=== PATIENT | female | born 1955 | race Caucasian/White ===

== ENCOUNTER → 2016-06-12 | Outpatient (CLI) | payer BC ==
[2016-06-12 07:09] LABS: CH 31.8; CHCM 33.7; HCT 47.8 % (34.0-46.0); HDW 2.43; HGB 15.2 gm/dL (11.4-16.0); MCH 30.2 pg (25.0-35.0); MCHC 31.9 g/dL (31.0-37.0); MCV 94.8 fL (80.0-100.0); Mean Platelet Volume 7.3; RBC 5.04 m/uL (3.80-5.40); RDW 12.4 % (11.5-15.5); WBC 5.3 k/uL (3.8-10.6)
[2016-06-12 07:31] LABS: ALT 56 U/L (9-52); AST 30 U/L (14-36); Alkaline Phosphatase 75 U/L (38-126); Anion Gap 9 mmol/L; Blood Urea Nitrogen 15 mg/dL (7-17); Calcium 9.7 mg/dL (8.4-10.2); Carbon Dioxide 29 mmol/L (22-30); Chloride 105 mmol/L (98-107); Cholesterol 190 mg/dL (<200); Glucose 92 mg/dL (74-99); HDL Cholesterol 66 mg/dL (40-60); Non-African American GFR(MDRD) 59 (>60 ml/min/1.73 sqM); Potassium 5.1 mmol/L (3.5-5.1); Sodium 143 mmol/L (137-145); Total Bilirubin 0.9 mg/dL (0.2-1.3); Total Protein 7.2 g/dL (6.3-8.2); Triglycerides 72 mg/dL (<150)
== END | disposition home or self-care (01) ==
LOC: LABWHC1 06:34
PROVIDERS: ATTEND Internal Medicine
DX: E03.9 Hypothyroidism, unspecified (principal); E78.5 Hyperlipidemia, unspecified
CPT/HCPCS: 36415; 80053; 80061; 84443; 85027

== ENCOUNTER → 2016-09-17 | Outpatient (CLI) | payer BC ==
[2016-09-17 07:15] LABS: CH 32.1; CHCM 33.3; HCT 45.2 % (34.0-46.0); HGB 14.5 gm/dL (11.4-16.0); MCH 31.1 pg (25.0-35.0); MCHC 32.2 g/dL (31.0-37.0); MCV 96.7 fL (80.0-100.0); Mean Platelet Volume 7.9; RBC 4.67 m/uL (3.80-5.40); RDW 12.8 % (11.5-15.5); WBC 4.9 k/uL (3.8-10.6)
[2016-09-17 07:50] LABS: ALT 25 U/L (9-52); AST 20 U/L (14-36); Alkaline Phosphatase 69 U/L (38-126); Anion Gap 7 mmol/L; Blood Urea Nitrogen 15 mg/dL (7-17); Calcium 9.1 mg/dL (8.4-10.2); Carbon Dioxide 28 mmol/L (22-30); Chloride 109 mmol/L (98-107); Cholesterol 173 mg/dL (<200); Glucose 95 mg/dL (74-99); HDL Cholesterol 67 mg/dL (40-60); Non-African American GFR(MDRD) >60 (>60 ml/min/1.73 sqM); Potassium 4.4 mmol/L (3.5-5.1); Sodium 144 mmol/L (137-145); Total Bilirubin 0.8 mg/dL (0.2-1.3); Total Protein 6.5 g/dL (6.3-8.2); Triglycerides 65 mg/dL (<150)
== END | disposition home or self-care (01) ==
LOC: LABWHC1 06:39
PROVIDERS: ATTEND Internal Medicine
DX: E78.5 Hyperlipidemia, unspecified (principal); E03.9 Hypothyroidism, unspecified
CPT/HCPCS: 36415; 80053; 80061; 84443; 85027

== ENCOUNTER → 2017-02-19 | Outpatient (CLI) | payer BC ==
--- NOTE | 2017-02-22 10:22 | MM ---
Reason for exam: screening (asymptomatic). Last mammogram was performed 1 year and 2 months ago. History: Patient is postmenopausal. Benign excisional biopsy of the right breast. Took hormonal contraceptives for 9 years. Took estrogen for 1 year. Physical Findings: A clinical breast exam by your physician is recommended on an annual basis and results should be correlated with mammographic findings. MG Screening Mammo w CAD Bilateral CC and MLO view(s) were taken. Prior study comparison: December 31, 2015, bilateral MG screening mammo w CAD. November 26, 2014, bilateral MG screening mammo w CAD. There are scattered fibroglandular densities. Stable benign calcifications. There is no discrete abnormality. No significant changes when compared with prior studies. ASSESSMENT: Benign, BI-RAD 2 RECOMMENDATION: Routine screening mammogram of both breasts in 1 year.
== END | disposition home or self-care (01) ==
LOC: RADMAMWWP 07:16
PROVIDERS: ATTEND Internal Medicine
DX: Z12.31 Encounter for screening mammogram for malignant neoplasm of breast (principal)

== ENCOUNTER 2017-11-04 09:45 | Day surgery (SDC) | payer BC, OTHER ==
[2017-11-02 17:25] VITALS: BMI 29.2
[~2017-11-04 09:45] MED LIST: LACTATED RINGERS 1,000 ML IV SCH
[2017-11-04 10:12] VITALS: RESP 16; TEMP 97.6
[2017-11-04] MEDS ORDERED: LIDOCAINE 1% 20 ML VIAL (10MG/ML) FOR IV START INTRADERMA ONE (10:21)
[2017-11-04] MEDS ORDERED: LIDOCAINE 1% INJ 10MG/ML (20 ML MDV) ONE (11:22)
[2017-11-04] MEDS ORDERED: PROPOFOL 10 MG/ML 20 ML VIAL IV ONE (11:22)
--- NOTE | 2017-11-04 11:43 | P.PCN ---
Date of Procedure: 11/04/17 Procedure(s) Performed: BRIEF HISTORY: Patient is a 62-year-old pleasant white female, scheduled for an elective colonoscopy as a part of screening for colorectal neoplasia. PROCEDURE PERFORMED: Colonoscopy and snare polypectomy. PREOPERATIVE DIAGNOSIS: Screening for colon cancer. IV sedation per Anesthesia. PROCEDURE: After informed consent was obtained, the patient, was brought into the endoscopy unit. IV sedation was administered by Anesthesia under continuous monitoring. Digital rectal examination was normal. Initially the Olympus CF- 160 flexible video colonoscope was then inserted in the rectum, gradually advanced into the cecum without any difficulty. Careful examination was performed as the scope was gradually being withdrawn. Ileocecal valve and the appendiceal orifice were visualized and appeared normal. Prep was excellent. Mucosa of the cecum, ascending colon, transverse colon, descending colon, sigmoid colon, appeared normal. In the rectosigmoid colon there was a 1.5 cm pedunculated polyp removed by snare polypectomy. The rectum appeared normal. Retroflexion was performed in the rectum and no lesions were seen. The patient tolerated the procedure well. IMPRESSION: 1.5 cm pedunculated rectosigmoid polyp status post polypectomy Rest of the colon appeared normal RECOMMENDATIONS: Findings of this examination were discussed with the patient as well as her family. She was advised to follow with the biopsy results. If the biopsy shows a tubular adenoma, she can have a repeat colonoscopy in 3 years
[2017-11-04 12:12] VITALS: BP 137/86; PULSE 54
== END 2017-11-04 12:13 | disposition home or self-care (01) ==
LOC: ORWHC2ENDO 09:45
PROVIDERS: ATTEND Internal Medicine Gastroenterology
DX: Z12.11 Encounter for screening for malignant neoplasm of colon (principal); D12.7 Benign neoplasm of rectosigmoid junction; E78.5 Hyperlipidemia, unspecified; F39 Unspecified mood [affective] disorder; Z79.82 Long term (current) use of aspirin; Z79.899 Other long term (current) drug therapy
CPT/HCPCS: 88305; 45385; J2001; J2704

== ENCOUNTER → 2018-03-23 | Outpatient (CLI) | payer OTHER ==
--- NOTE | 2018-03-23 13:09 | MM ---
Reason for exam: screening (asymptomatic). Last mammogram was performed 1 year and 1 month ago. History: Patient is postmenopausal. Benign excisional biopsy of the right breast. Took hormonal contraceptives for 9 years. Took estrogen for 1 year. Physical Findings: A clinical breast exam by your physician is recommended on an annual basis and results should be correlated with mammographic findings. MG Screening Mammo w CAD Bilateral CC and MLO view(s) were taken. Prior study comparison: February 19, 2017, bilateral MG screening mammo w CAD. December 31, 2015, bilateral MG screening mammo w CAD. The breast tissue is heterogeneously dense. This may lower the sensitivity of mammography. There are benign appearing round calcifications bilaterally. There is no discrete abnormality. ASSESSMENT: Benign, BI-RAD 2 RECOMMENDATION: Routine screening mammogram of both breasts in 1 year.
== END ==
LOC: RADMAMWWP 07:37
PROVIDERS: ATTEND Internal Medicine
DX: Z12.31 Encounter for screening mammogram for malignant neoplasm of breast (principal)
CPT/HCPCS: 77067

== ENCOUNTER → 2019-05-11 | Outpatient (CLI) | payer BC ==
--- NOTE | 2019-05-11 12:08 | MM ---
Reason for exam: screening (asymptomatic). Last mammogram was performed 1 year and 2 months ago. History: Patient is postmenopausal. Benign excisional biopsy of the right breast. Took hormonal contraceptives for 9 years. Took estrogen for 1 year. Physical Findings: A clinical breast exam by your physician is recommended on an annual basis and results should be correlated with mammographic findings. MG 3D Screening Mammo W/Cad Bilateral CC and MLO view(s) were taken. Prior study comparison: March 23, 2018, bilateral MG screening mammo w CAD. February 19, 2017, bilateral MG screening mammo w CAD. There are scattered fibroglandular densities. There is chronic nodularity bilaterally. Asymmetric breast tissue 7mm right breast 9cm from nipple at 9 o'clock and 7mm left breast 12cm from nipple at 3 o'clock. This finding is changed when compared with previous exams. ASSESSMENT: Incomplete: need additional imaging evaluation, BI-RAD 0 RECOMMENDATION: Ultrasound of both breasts. [facility] will attempt to contact patient to return for ultrasound.
== END | disposition home or self-care (01) ==
LOC: RADMAMWWP 07:22
PROVIDERS: ATTEND Obstetrics & Gynecology
DX: Z12.31 Encounter for screening mammogram for malignant neoplasm of breast (principal)
CPT/HCPCS: 77063; 77067

== ENCOUNTER → 2019-05-23 | Outpatient (CLI) | payer BC ==
--- NOTE | 2019-05-23 10:06 | USB ---
Reason for exam: additional evaluation requested from abnormal screening. History: Patient is postmenopausal. Benign excisional biopsy of the right breast. Took hormonal contraceptives for 9 years. Took estrogen for 1 year. Physical Findings: Nurse did not find any significant physical abnormalities on exam. US Breast Workup Limited JONNIE Right limited breast ultrasound including focal area of concern, retroareolar and axilla demonstrates a 7 x 2 x 5mm cystic cluster at 9 o'clock. Left limited breast ultrasound including focal area of concern, retroareolar and axilla demonstrates a 5 x 3 x 3mm cystic lesion at 2 o'clock. Bilateral upper outer quadrants scanned. These may correspond to the mammographic findings. 6 month follow up recommended. These results were verbally communicated with the patient and result sheet given to the patient on 05/23/19. ASSESSMENT: Probably benign, BI-RAD 3 RECOMMENDATION: Follow-up diagnostic mammogram of both breasts in 6 months.
== END | disposition home or self-care (01) ==
LOC: RADUSWWP 08:20
PROVIDERS: ATTEND Obstetrics & Gynecology
DX: R92.8 Other abnormal and inconclusive findings on diagnostic imaging of breast (principal)

== ENCOUNTER → 2020-02-20 | Outpatient (CLI) | payer BC ==
--- NOTE | 2020-02-20 08:25 | MM ---
Reason for exam: additional evaluation requested from prior study. Last mammogram was performed 9 months ago. History: Patient is postmenopausal. Benign excisional biopsy of the right breast. Took hormonal contraceptives for 9 years. Took estrogen for 1 year. Physical Findings: Nurse did not find any significant physical abnormalities on exam. MG 3D Diag Mammo W/Cad JONNIE Bilateral CC and MLO view(s) were taken. Prior study comparison: May 11, 2019, bilateral MG 3d screening mammo w/cad. March 23, 2018, bilateral MG screening mammo w CAD. February 19, 2017, bilateral MG screening mammo w CAD. There are scattered fibroglandular densities. No significant new findings when compared with previous films. These results were verbally communicated with the patient and result sheet given to the patient on 02/20/20. ASSESSMENT: Benign, BI-RAD 2 RECOMMENDATION: Routine screening mammogram of both breasts in 1 year.
== END | disposition home or self-care (01) ==
LOC: RADMAMWWP 07:38
PROVIDERS: ATTEND Obstetrics & Gynecology
DX: R92.8 Other abnormal and inconclusive findings on diagnostic imaging of breast (principal)
CPT/HCPCS: 77062; 77066

== ENCOUNTER → 2020-03-15 | Outpatient (CLI) | payer BC ==
--- NOTE | 2020-03-16 16:25 | BD ---
EXAMINATION TYPE: Axial Bone Density DATE OF EXAM: 03/15/2020 COMPARISON: NONE CLINICAL HISTORY: Height: 64.5 Weight: 172.3 FRAX RISK QUESTIONS: Alcohol (3 or more units per day): no Family History (Parent hip fracture): no Glucocorticoids (More than 3mos): no (Ex: prednisone, prednisolone, methylprednisolone, dexamethasone, and hydrocortisone). History of Fracture in Adulthood: yes Secondary Osteoporosis: 1. Type 1 Diabetes: no 2. Hyperthyroidism: no 3. Menopause before 45: no 4. Malnutrition: no 5. Chronic liver disease: no Rheumatoid Arthritis: no Current Tobacco Use: no RISK FACTORS HISTORY OF: Family History of Osteoporosis: yes Active: yes Diet low in dairy products/other sources of calcium: no Postmenopausal woman: age 55 Lost more than 2 inches in height since high school: no MEDICATIONS: lexapro, cholesterol meds Thyroid Medications: levothyroxine How Lon years Additional History: EXAM MEASUREMENTS: Bone mineral densitometry was performed using the [employer] System. Bone mineral density as measured about the Lumbar spine is: ----- L1-L4(G/cm2): 1.080 T Score Values are as follows: ----- L2: -0.4 ----- L3: -0.8 ----- L4: -1.0 ----- L1-L4: -0.8 Bone mineral density has: increased 5.0 % since study of: 11.26.2014 Bone mineral density about the R hip (g/cm2): 0.859 Bone mineral density about the L hip (g/cm2): 0.806 T Score values are as follows: -----R Neck: -1.3 -----L Neck: -1.7 -----R Total: -1.1 -----L Total: -1.1 Bone mineral density has: increased 1.9 % since study of: 11.26.2014 IMPRESSION: Osteopenia (T Score between -2.5 and -1). There is slightly increased risk of fracture and the patient may be considered for treatment. Re-Screen 2-5 years. NOTE: T-SCORE=SD OF THE YOUNG ADULT MEAN.
== END | disposition home or self-care (01) ==
LOC: RADBDWWP 08:00
PROVIDERS: ATTEND Internal Medicine
DX: M85.80 Other specified disorders of bone density and structure, unspecified site (principal)
CPT/HCPCS: 77080

== ENCOUNTER → 2020-11-29 | Day surgery (SDC) | payer BC ==
[~2020-11-29] MED LIST changes: +LIDOCAINE 1% (10MG/ML) FOR IV START INTRADERMA PRN; +PROPOFOL 10 MG/ML 20 ML VIAL IV ONE
[2020-11-29 09:55] VITALS: TEMP 97.1
--- NOTE | 2020-11-29 11:35 | P.PCN ---
Date of Procedure: 11/29/20 Procedure(s) Performed: BRIEF HISTORY: Patient is a 65-year-old pleasant white female scheduled for an elective colonoscopy as a part of evaluation of prior history of colon polyps. Last coloscopy was 3 years ago. PROCEDURE PERFORMED: Colonoscopy with biopsy. PREOPERATIVE DIAGNOSIS: history of colon polyps. IV sedation per Anesthesia. PROCEDURE: After informed consent was obtained, the patient, was brought into the endoscopy unit. IV sedation was administered by Anesthesia under continuous monitoring. Digital rectal examination was normal. Initially the Olympus CF-160 flexible video colonoscope was then inserted in the rectum, gradually advanced into the cecum without any difficulty. Careful examination was performed as the scope was gradually being withdrawn. Ileocecal valve and the appendiceal orifice were visualized and appeared normal. Prep was excellent. Mucosa of the cecum, appeared normal. Ascending colon there was a 3-4 mm polyp that was removed by cold biopsy. Rest of theascending colon, transverse colon, descending colon, sigmoid colon, and rectum appeared normal. Retroflexion was performed in the rectum and no lesions were seen. The patient tolerated the procedure well. IMPRESSION: 3-4 mm ascending colon polyp status post biopsy Rest of the colon appeared normal RECOMMENDATIONS: Findings of this examination were discussed with the patient as well as a family. She was advised to follow with the biopsy result. If the biopsy shows an adenoma she can have a repeat colonoscopy in 5 years.
[2020-11-29 11:37] VITALS: RESP 17
[2020-11-29 12:11] VITALS: BP 144/72; PULSE 85
== END ==
LOC: ORWHC2ENDO 09:15
PROVIDERS: ATTEND Internal Medicine Gastroenterology
DX: D12.2 Benign neoplasm of ascending colon (principal); Z86.010 Personal history of colon polyps; E07.9 Disorder of thyroid, unspecified; E78.5 Hyperlipidemia, unspecified; M19.90 Unspecified osteoarthritis, unspecified site; Z98.890 Other specified postprocedural states; Z79.890 Hormone replacement therapy; Z79.899 Other long term (current) drug therapy
CPT/HCPCS: 45380; 88305; J2704

== ENCOUNTER 2022-03-03 08:24 | Day surgery (SDC) | payer BC ==
[~2022-03-03 08:24] MED LIST changes: -LIDOCAINE 1% (10MG/ML) FOR IV START INTRADERMA PRN; -PROPOFOL 10 MG/ML 20 ML VIAL IV ONE
[2022-03-03 09:10] VITALS: RESP 16; TEMP 98
[2022-03-03] MEDS ORDERED: PROPOFOL 10 MG/ML 20 ML VIAL IV ONE (10:02)
--- NOTE | 2022-03-03 10:20 | P.PCN ---
Date of Procedure: 03/03/22 Procedure(s) Performed: BRIEF HISTORY: Patient is a 66-year-old pleasant white female scheduled for an elective colonoscopy as a part of evaluation of prior history of colon polyps. Her last colonoscopy was 3 years ago. PROCEDURE PERFORMED: Colonoscopy. PREOPERATIVE DIAGNOSIS: History of colon polyps. IV sedation per Anesthesia. PROCEDURE: After informed consent was obtained, the patient, was brought into the endoscopy unit. IV sedation was administered by Anesthesia under continuous monitoring. Digital rectal examination was normal. Initially the Olympus CF-160 flexible video colonoscope was then inserted in the rectum, gradually advanced into the cecum without any difficulty. Careful examination was performed as the scope was gradually being withdrawn. Ileocecal valve and the appendiceal orifice were visualized and appeared normal. Prep was excellent. Mucosa of the cecum, ascending colon, transverse colon, descending colon, sigmoid colon, and rectum appeared normal. Retroflexion was performed in the rectum and no lesions were seen. The patient tolerated the procedure well. IMPRESSION: Normal-appearing colon from rectum to cecum with no evidence of colorectal neoplasia . RECOMMENDATIONS: Findings of this examination were discussed with the patient as well as a family. She was advised to have a repeat colonoscopy in 5 years because of prior history of colon polyps.
[2022-03-03 10:42] VITALS: BP 133/72; PULSE 56
== END 2022-03-03 11:04 | disposition home or self-care (01) ==
LOC: ORWHC2ENDO 08:24
PROVIDERS: ATTEND Internal Medicine Gastroenterology
DX: Z12.11 Encounter for screening for malignant neoplasm of colon (principal); E78.5 Hyperlipidemia, unspecified; M19.90 Unspecified osteoarthritis, unspecified site; E07.9 Disorder of thyroid, unspecified; Z79.890 Hormone replacement therapy; Z79.899 Other long term (current) drug therapy
CPT/HCPCS: 45378; J2704

== ENCOUNTER → 2022-07-03 | Outpatient (CLI) | payer MEDICARE ==
--- NOTE | 2022-07-06 16:46 | MM ---
Reason for Exam: Screening (asymptomatic). Last mammogram was performed 1 year(s) and 2 month(s) ago. Patient History: Menarche at age 12. First Full-Term at age 24. Postmenopausal. Patient has history of breast feeding. Patient used Estrogen for 1 year. Patient used Hormonal Contraceptives for 9 years. Benign Excisional Biopsy on the right side. Risk Values: [place] 5 year model risk: 1.8%. NCI Lifetime model risk: 6.4%. Prior Study Comparison: 12/31/2015 Bilateral Screening Mammogram, [facility]. 02/19/2017 Bilateral Screening Mammogram, [facility]. 03/23/2018 Bilateral Screening Mammogram, [facility]. 05/11/2019 Bilateral Screening Mammogram, [facility]. 02/20/2020 Bilateral Diagnostic Mammogram, [facility]. 04/08/2021 Bilateral Screening Mammogram, [facility]. Tissue Density: There are scattered fibroglandular densities. Findings: Analyzed By CAD. Heart appears symmetrical and stable. Benign spherical calcifications are present bilaterally. There is a focal asymmetric density in the upper-outer aspect right breast which appears to be enlarging over the interval. Additional workup is recommended. Overall Assessment: Incomplete: need additional imaging evaluation, BI-RAD 0 Management: Diagnostic Mammogram of the right breast. A negative mammogram report should not preclude additional follow up of suspicious palpable abnormalities. Patient should continue monthly self breast exam. A clinical breast exam by your physician is recommended on an annual basis and results should be correlated with mammographic findings. Electronically signed and approved by: Donta Blas D.O. Radiologis
== END | disposition home or self-care (01) ==
LOC: RADMAMWWP 07:12
PROVIDERS: ATTEND Internal Medicine
DX: Z12.31 Encounter for screening mammogram for malignant neoplasm of breast (principal); Z78.0 Asymptomatic menopausal state
CPT/HCPCS: 77063; 77067

== ENCOUNTER → 2022-07-08 | Outpatient (CLI) | payer MEDICARE ==
--- NOTE | 2022-07-08 08:24 | MM ---
Reason for Exam: Additional evaluation requested from abnormal screening. Last screening mammogram was performed less than 1 month ago. Patient History: Menarche at age 12. First Full-Term at age 24. Postmenopausal. Patient has history of breast feeding. Patient used Estrogen for 1 year. Patient used Hormonal Contraceptives for 9 years. Benign Excisional Biopsy on the right side. Risk Values: [place] 5 year model risk: 1.8%. NCI Lifetime model risk: 6.4%. Prior Study Comparison: 07/22/2012 Bilateral Screening Mammogram, [facility]. 10/04/2013 Bilateral Screening Mammogram, [facility]. 11/26/2014 Bilateral Screening Mammogram, [facility]. 12/31/2015 Bilateral Screening Mammogram, [facility]. 02/19/2017 Bilateral Screening Mammogram, [facility]. 03/23/2018 Bilateral Screening Mammogram, [facility]. 05/11/2019 Bilateral Screening Mammogram, [facility]. 05/23/2019 Bilateral Diagnostic Ultrasound, [facility]. 02/20/2020 Bilateral Diagnostic Mammogram, [facility]. Tissue Density: Right: There are scattered fibroglandular densities. Findings: Analyzed By CAD. A few benign-appearing tiny round calcifications throughout the right breast are redemonstrated. Roughly 12 mm focal asymmetry in the right breast persists on additional views the posterior upper-outer quadrant. Overall Assessment: Incomplete: need additional imaging evaluation, BI-RAD 0 Management: Diagnostic Breast Ultrasound of the right breast. Targeted ultrasound right breast . Electronically signed and approved by: Ryan Toney M.D.
--- NOTE | 2022-07-08 09:02 | USB ---
Reason for Exam: Additional evaluation requested from abnormal screening. Patient History: Menarche at age 12. First Full-Term at age 24. Postmenopausal. Patient has history of breast feeding. Patient used Estrogen for 1 year. Patient used Hormonal Contraceptives for 9 years. Benign Excisional Biopsy on the right side. Risk Values: [place] 5 year model risk: 1.8%. NCI Lifetime model risk: 6.4%. Technique: Method: Targeted. Prior Study Comparison: 02/20/2020 Bilateral Diagnostic Mammogram, [facility]. 04/08/2021 Bilateral Screening Mammogram, [facility]. 07/03/2022 Bilateral MG 3D screening mammo w/cad, [facility]. Findings: The upper outer quadrant of the right breast, the axilla of the right breast and the retroareolar of the right breast were scanned. Targeted ultrasound shows a 8 x 5 x 9 mm heterogeneous hypoechoic oval mass or area at 11:00 position 10 cm distance from nipple that is taller greater than wide without vascularity is felt to correspond to new mammogram abnormality without posterior acoustic features. Overall Assessment: Suspicious, BI-RAD 4 Management: Ultrasound Core Biopsy of the right breast. Tissue sampling recommended. Results were given to the patient verbally at the time of exam. Electronically signed and approved by: Ryan Toney M.D.
== END | disposition home or self-care (01) ==
LOC: RADMAMWWP 07:43
PROVIDERS: ATTEND Internal Medicine
DX: R92.8 Other abnormal and inconclusive findings on diagnostic imaging of breast (principal); Z78.0 Asymptomatic menopausal state
CPT/HCPCS: 77065; 76642; G0279; 77061

== ENCOUNTER → 2022-07-23 | Day surgery (SDC) | payer MEDICARE ==
--- NOTE | 2022-07-29 10:38 | MM ---
Reason for Exam: Post Procedure Mammogram. Last screening mammogram was performed less than 1 month ago. Patient History: Menarche at age 12. First Full-Term at age 24. Postmenopausal. Patient has history of breast feeding. Patient used Estrogen for 1 year. Patient used Hormonal Contraceptives for 9 years. Benign Excisional Biopsy on the right side. Risk Values: [place] 5 year model risk: 1.8%. NCI Lifetime model risk: 6.4%. Prior Study Comparison: 04/08/2021 Bilateral Screening Mammogram, [facility]. 07/03/2022 Bilateral MG 3D screening mammo w/cad, [facility]. 07/08/2022 Right MG 3D work up w/cad RT, [facility]. Tissue Density: Right: There are scattered fibroglandular densities. Pathology Description: Location: 11 o'clock. Marker Left Behind. Needle Type: Mammotome Cores: 4 Gauge: 13 The procedure of ultrasound guided core biopsy was explained to the patient. Benefits, alternatives, and risks were discussed. An informed consent was then obtained. The patient was placed in supine positioning for imaging and for the procedure. The overlying skin was prepped and draped in usual sterile fashion. Lidocaine was used as anesthetic into the skin and subcutaneous tissue up to area of concern in the right breast. Under ultrasound guidance, a 12-gauge vacuum assisted biopsy gun device was used to obtain 4 core samples. Following this, a biopsy clip was left in lesion. The patient tolerated the procedure well without any immediate complication. The patient was kept in the radiology department for short stay after the procedure and then discharged home in stable condition. Postprocedure mammogram: The patient was transferred to mammography for physician ordered post procedure mammogram for clip placement verification. Postprocedure mammogram demonstrates the clip to have migrated approximately 9 mm medial to the lesion. Impression: Successful, uncomplicated ultrasound guided core biopsy of area of concern in the right breast, full pathology results to follow. Pathology Results: RIGHT BREAST, 11:00, ULTRASOUND GUIDED NEEDLE CORE BIOPSY: Benign breast tissue. See note. Notes The biopsy is non-diagnostic of a neoplasm or discrete pathologic process. Recommend clinical/imaging study correlation to determine biopsy adequacy and follow up of the patient as clinically indicated. Overall Assessment: Suspicious, BI-RAD 4 Assessment: MG diagnostic mammo RT wo CAD - Right: Suspicious, BI-RAD 4. Management: Surgical Consultation of the right breast. Repeat Biopsy of the right breast. Electronically signed and approved by: Jere Mitchell D.O.
== END ==
LOC: RADUSWWP 13:10
PROVIDERS: ATTEND Surgery
DX: N64.89 Other specified disorders of breast (principal); Z78.0 Asymptomatic menopausal state
CPT/HCPCS: 88305; 77065; 19083; A4648

== ENCOUNTER → 2022-08-06 | Outpatient (CLI) | payer MEDICARE ==
--- NOTE | 2022-08-06 10:32 | P.GSHP ---
History of Present Illness H&P Date: 08/06/22 Chief Complaint: Abnormal right breast mammogram Mary Ann rincon a 66-year-old white female was seen in consultation for Dr. Kaiser regarding an abnormal right breast mammogram. She underwent a bilateral mammogram and [id number]. There was a focal asymmetric density in the upper quadrant of the right breast which appeared to be enlarging over the interval since her last mammogram. The patient subsequently on 4523 underwent a diagnostic mammogram of the right breast as well as a right breast ultrasound. On the ultrasound she was noted to have an 8 x 9 mm heterogeneous hypoechoic oval mass at the 11 o'clock position. This was considered BIRADS 4 and a sister and a core biopsy was recommended. Core biopsy was performed and [id number] and this revealed benign breast tissue and was considered nondiagnostic and possibly discordant. The patient herself does not feel any lumps masses or nodules of concern in either breast. She is not complaining of any nipple discharge or skin changes. She does not complain of any recent trauma or infection in the breast. She has had a right breast biopsy in 2004 this was benign. CAffiene: 1 cup coffee/day nictoine: none chocolate: daily BCP: 10 years in remote past Family history: father: leukemia Hormonal History: menarche: 12 M1, breast fed: yes, age at first : 24 menopause: 55 BCP: age [age] Surgical History: D&C right breast open biopsy bilateral wrist Medical History: hypothyroid glaucoma anxiety Social History: nicotine: none alcohol: occasional drugs: none - Constitutional Constitutional: Denies chills, Denies fever - EENT Eyes: denies blurred vision, denies pain Ears: deny: decreased hearing, tinnitus Ears, nose, mouth and throat: Denies headache, Denies sore throat - Breasts Breasts: bilateral: as per HPI - Cardiovascular Cardiovascular: Denies chest pain, Denies shortness of breath - Respiratory Respiratory: Denies cough, Denies 7 - Gastrointestinal Gastrointestinal: Denies abdominal pain, Denies diarrhea, Denies nausea, Denies vomiting - Genitourinary (Female) Genitourinary: Denies dysuria, Denies hematuria - Menstruation Menstruation: Reports postmenopausal - Musculoskeletal Musculoskeletal: Denies myalgias - Integumentary Integumentary: Denies pruritus, Denies rash - Neurological Neurological: Denies numbness, Denies weakness - Psychiatric Psychiatric: Reports anxiety, Denies depression - Endocrine Endocrine: Denies fatigue, Denies weight change - Hematologic/Lymphatic Comment: none - Allergic/Immunologic Allergic/Immunologic: Reports seasonal allergies Past Medical History Past Medical History: Hyperlipidemia, Osteoarthritis (OA), Pneumonia, Thyroid Disorder Additional Past Medical History / Comment(s): hx colon polyps, History of Any Multi-Drug Resistant Organisms: None Reported Past Surgical History: Orthopedic Surgery Additional Past Surgical History / Comment(s): surgery on kaykay thumbs, kaykya cataracts, D&C, colonoscopy Past Anesthesia/Blood Transfusion Reactions: No Reported Reaction Past Psychological History: Anxiety Smoking Status: Never smoker Past Alcohol Use History: Occasional Past Drug Use History: None Reported - Past Family History Father Family Medical History: Cancer Additional Family Medical History / Comment(s): leukemia Medications and Allergies Home Medications Medication Instructions Recorded Confirmed Type Aspirin [Adult Low Dose Aspirin EC] 81 mg PO DAILY 11/02/17 07/09/22 History Cholecalciferol [Vitamin D3] 1,000 unit PO BID 11/02/17 07/09/22 History Cranberry Tab 1 tab PO DAILY 11/02/17 07/09/22 History Escitalopram [Lexapro] 10 mg PO HS 11/02/17 07/09/22 History I-Cool 1 tab PO DAILY 11/02/17 07/09/22 History Levothyroxine Sodium [Synthroid] 75 mcg PO DAILY 11/02/17 07/09/22 History Multivitamins, Thera [Multivitamin 1 tab PO DAILY 11/02/17 07/09/22 History (formulary)] Pravastatin Sodium [Pravachol] 20 mg PO HS 11/02/17 07/09/22 History Allergies Allergy/AdvReac Type Severity Reaction Status Date / Time No Known Allergies Allergy Verified 07/09/22 10:45 Surgical - Exam - General no distress - Eyes normal ocular movement - ENT no hearing loss - Neck trachea midline - Respiratory normal respiratory effort, clear to auscultation - Cardiovascular Rhythm: regular Heart Sounds: normal: S1, S2 - Abdomen Abdomen: soft, non tender, no guarding, no rigid, no rebound - Integumentary normal turgor - Musculoskeletal normal gait - Psychiatric oriented to time, oriented to person, oriented to place, speech is normal, memory intact Breast Exam: BRA: 40D Inspection: Well-healed scar right breast from prior surgery, ecchymosis right breast from recent core biopsy, bilateral grade 3 ptosis Palpation: Right breast: Multiple positional exam no dominant masses or nodules of concern Right axilla: No adenopathy of concern Left breast: Multiple positional exam no dominant masses or nodules of concern Left axilla: No adenopathy of concern Results The patient's mammogram and ultrasound are reviewed with radiology Dr. Pierce Assessment and Plan Assessment: Impression: Abnormal right breast mammogram/ultrasound discordant core biopsy Hypothyroid Plan: Right breast ultrasound guided localization if necessary we'll do a mammogram localization to be followed by needle localization right breast lesion resection in the operating room, possible optical plastic tissue transfer Risk and benefits are discussed with the patient. Risks include but are not limited to bleeding, infection, reaction to the anesthetic. The lesion of concern were not adequately removed then further surgery may be necessary. Additionally this were to be a cancer then further surgery may be recommended. The patient understands and wishes to proceed. This will be scheduled in the near future. CC: Awilda
== END ==
LOC: WWCWWP 10:00
PROVIDERS: ATTEND Surgery
DX: R92.8 Other abnormal and inconclusive findings on diagnostic imaging of breast (principal); E03.9 Hypothyroidism, unspecified; E78.5 Hyperlipidemia, unspecified; F41.9 Anxiety disorder, unspecified; M19.90 Unspecified osteoarthritis, unspecified site; N64.89 Other specified disorders of breast; Z79.82 Long term (current) use of aspirin; Z79.890 Hormone replacement therapy

== ENCOUNTER → 2022-09-16 | Outpatient (CLI) | payer MEDICARE ==
[2022-09-16 09:13] VITALS: BP 139/73; PULSE 68; RESP 16; TEMP 97.9
--- NOTE | 2022-09-16 09:26 | P.PN ---
Subjective Progress Note Date: 09/16/22 Principal diagnosis: discordant right breast core biopsy Abnormal right breast mammogram Mary Ann rincon a 66-year-old white female was seen in consultation for Dr. Kaiser regarding an abnormal right breast mammogram. She underwent a bilateral mammogram on . There was a focal asymmetric density in the upper quadrant of the right breast which appeared to be enlarging over the interval since her last mammogram. The patient subsequently on 4522 underwent a diagnostic mammogram of the right breast as well as a right breast ultrasound. On the ultrasound she was noted to have an 8 x 9 mm heterogeneous hypoechoic oval mass at the 11 o'clock position. This was considered BIRADS 4 a core biopsy was recommended. Core biopsy was performed and and this revealed benign breast tissue and was considered nondiagnostic and possibly discordant. The patient herself does not feel any lumps masses or nodules of concern in either breast. She is not complaining of any nipple discharge or skin changes. She does not complain of any recent trauma or infection in the breast. She has had a right breast biopsy in 2004 this was benign. CAffiene: 1 cup coffee/day nictoine: none chocolate: daily BCP: 10 years in remote past Family history: father: leukemia Hormonal History: menarche: 12 M1, breast fed: yes, age at first : 24 menopause: 55 BCP: age [age] Surgical History: D&C right breast open biopsy bilateral wrist Medical History: hypothyroid glaucoma anxiety Social History: nicotine: none alcohol: occasional drugs: none - Constitutional Constitutional: Denies chills, Denies fever - EENT Eyes: denies blurred vision, denies pain Ears: deny: decreased hearing, tinnitus Ears, nose, mouth and throat: Denies headache, Denies sore throat - Breasts Breasts: bilateral: as per HPI - Cardiovascular Cardiovascular: Denies chest pain, Denies shortness of breath - Respiratory Respiratory: Denies cough - Gastrointestinal Gastrointestinal: Denies abdominal pain, Denies diarrhea, Denies nausea, Denies vomiting - Genitourinary (Female) Genitourinary: Denies dysuria, Denies hematuria - Menstruation Menstruation: Reports postmenopausal - Musculoskeletal Musculoskeletal: Denies myalgias - Integumentary Integumentary: Denies pruritus, Denies rash - Neurological Neurological: Denies numbness, Denies weakness - Psychiatric Psychiatric: Reports anxiety, Denies depression - Endocrine Endocrine: Denies fatigue, Denies weight change - Hematologic/Lymphatic Comment: none - Allergic/Immunologic Allergic/Immunologic: Reports seasonal allergies Past Medical History Past Medical History: Hyperlipidemia, Osteoarthritis (OA), Pneumonia, Thyroid Disorder Additional Past Medical History / Comment(s): hx colon polyps, History of Any Multi-Drug Resistant Organisms: None Reported Past Surgical History: Orthopedic Surgery Additional Past Surgical History / Comment(s): surgery on kaykay thumbs, kaykay cataracts, D&C, colonoscopy Past Anesthesia/Blood Transfusion Reactions: No Reported Reaction Past Psychological History: Anxiety Smoking Status: Never smoker Past Alcohol Use History: Occasional Past Drug Use History: None Reported - Past Family History Father Family Medical History: Cancer Additional Family Medical History / Comment(s): leukemia Medications and Allergies Home Medications Medication Instructions Recorded Confirmed Type Aspirin [Adult Low Dose Aspirin EC] 81 mg PO DAILY 11/02/17 07/09/22 History Cholecalciferol [Vitamin D3] 1,000 unit PO BID 11/02/17 07/09/22 History Cranberry Tab 1 tab PO DAILY 11/02/17 07/09/22 History Escitalopram [Lexapro] 10 mg PO HS 11/02/17 07/09/22 History I-Cool 1 tab PO DAILY 11/02/17 07/09/22 History Levothyroxine Sodium [Synthroid] 75 mcg PO DAILY 11/02/17 07/09/22 History Multivitamins, Thera [Multivitamin 1 tab PO DAILY 11/02/17 07/09/22 History (formulary)] Pravastatin Sodium [Pravachol] 20 mg PO HS 11/02/17 07/09/22 History Allergies Allergy/AdvReac Type Severity Reaction Status Date / Time No Known Allergies Allergy Verified 07/09/22 10:45 Objective - Vital Signs Vital signs: Vital Signs Temp 97.9 F 09/16/22 09:10 Pulse 68 09/16/22 09:10 Resp 16 09/16/22 09:10 BP 139/73 09/16/22 09:10 Pulse Ox 97 09/16/22 09:10 FiO2 Intake & Output 09/15/22 09/16/22 09/16/22 18:59 06:59 18:59 Weight 77.111 kg - Constitutional General appearance: Present: cooperative - EENT Eyes: Present: EOMI ENT: Present: hearing grossly normal - Neck Neck: Present: normal ROM - Respiratory Respiratory: bilateral: CTA - Cardiovascular Rhythm: regular Heart sounds: normal: S1, S2 - Gastrointestinal General gastrointestinal: Present: soft - Integumentary Integumentary: Present: normal turgor - Musculoskeletal Musculoskeletal: Present: gait normal - Psychiatric Psychiatric: Present: A&O x's 3, appropriate affect, intact judgment & insight - Additional findings Additional findings: Breast Exam: BRA: 40D Inspection: Well-healed scar right breast from prior surgery, bilateral grade 3 ptosis; right breaset smaller than left breast Palpation: Right breast: Multiple positional exam no dominant masses or nodules of concern Right axilla: No adenopathy of concern Left breast: Multiple positional exam no dominant masses or nodules of concern Left axilla: No adenopathy of concern Assessment and Plan Assessment: Impression: Abnormal right breast mammogram/ultrasound discordant core biopsy Hypothyroid The patient's mammogram and ultrasound are reviewed with radiology Dr. Pierce Plan: Right breast ultrasound guided localization if necessary we'll do a mammogram localization to be followed by needle localization right breast lesion resection in the operating room, possible onco-plastic tissue transfer Risk and benefits are discussed with the patient. Risks include but are not limited to bleeding, infection, reaction to the anesthetic. If the lesion of concern were not adequately removed then further surgery may be necessary. Additionally if this were to be a cancer then further surgery may be re commended. The patient understands and wishes to proceed. This will be scheduled in the near future. CC: Awilda
== END ==
LOC: WWCWWP 08:59
PROVIDERS: ATTEND Surgery
DX: N64.89 Other specified disorders of breast (principal); R92.0 Mammographic microcalcification found on diagnostic imaging of breast; H40.9 Unspecified glaucoma; E03.9 Hypothyroidism, unspecified; E78.5 Hyperlipidemia, unspecified; F41.9 Anxiety disorder, unspecified; M19.90 Unspecified osteoarthritis, unspecified site; Z79.82 Long term (current) use of aspirin; Z80.8 Family history of malignant neoplasm of other organs or systems; Z79.890 Hormone replacement therapy

== ENCOUNTER 2022-09-29 07:48 | Day surgery (SDC) | payer MEDICARE ==
[~2022-09-29 07:48] MED LIST changes: +DEXAMETHASONE SOD PHOSPHATE 4 MG/ML 1 ML VIAL IV ONE; +HEPARIN SODIUM,PORCINE/PF 5,000 UNIT/0.5 ML SYRINGE SQ PRN; +HYDROmorphone 0.5 MG/0.5 ML SYRINGE IVP PRN; +LIDOCAINE 1% (10MG/ML) FOR IV START INTRADERMA PRN; +MIDAZOLAM 2 MG/2 ML VIAL IV PRN; +ONDANSETRON 4 MG/2 ML VIAL IVP ONE; +Pre Op ABX Message 1 EACH MISC MISCELLANE ONE
[2022-09-29] MEDS ORDERED: ALPRAZolam 0.25 MG TAB ONE (08:36)
[2022-09-29] MEDS ORDERED: ALPRAZolam 0.25 MG TAB PO ONE (08:47)
[2022-09-29 09:15] VITALS: TEMP 98.1
[2022-09-29] MEDS ORDERED: LIDOCAINE 1% INJ 10MG/ML (20 ML MDV) SQ ONE (09:31)
[2022-09-29] MEDS ORDERED: fentaNYL (PF) 50 MCG/ML 2 ML AMP ONE (10:02)
[2022-09-29] MEDS ORDERED: PROPOFOL 10 MG/ML 20 ML VIAL IV ONE (10:02)
[2022-09-29] MEDS ORDERED: ROCURONIUM 10 MG/ML (5 ML VIAL) IV ONE (10:02)
[2022-09-29] MEDS ORDERED: GLYCOPYRROLATE 0.2 MG/ML 2 ML VIAL ONE (10:02)
[2022-09-29] MEDS ORDERED: SUCCINYLCHOLINE CHLORIDE 200 MG/10 ML VIAL IV ONE (10:02)
[2022-09-29] MEDS ORDERED: MIDAZOLAM 2 MG/2 ML VIAL ONE (10:02)
[2022-09-29] MEDS ORDERED: LIDOCAINE 2% INJ 20 MG/ML (2 ML VIAL) ONE (10:02)
--- NOTE | 2022-09-29 10:56 | P.OP ---
Date of Procedure: 09/29/22 Preoperative Diagnosis: discordant right breast core biopsy Postoperative Diagnosis: same Procedure(s) Performed: Right breast needle localization excisional biopsy Anesthesia: GETA Director [facility]: Caterina Pratt Estimated Blood Loss (ml): 5 IV fluids (ml): 700 Pathology: other (breast tissue) Condition: stable Disposition: same day Indications for Procedure: Discordant right breast core biopsy Operative Findings: Fibrofatty breast tissue Description of Procedure: Following needle localization of the area of concern in the right breast the patient was brought to the operating room. Following induction of anesthesia the right breast was prepped and draped in a sterile fashion. An incision was made and carried down to the shaft of the needle. Surrounding tissue was excised. Posteriorly dissection was onto the pectoralis muscle. Following this the wound was irrigated. After we were assured that hemostasis was attained titanium clips were placed. The deep tissues were closed using 3-0 Vicryl suture. The skin was closed using 3-0 Vicryl subcutaneous suture and 4-0 subcuticular Monocryl. Steri-Strips were applied. The specimen was painted for orientation. Radiographs revealed that the area of concern had been removed. The patient will follow up with Dr. Santoyo the specimen was sent to pathology. The patient tolerated the procedure in stable condition. All instrument and sponge counts were correct at the end of the case.
--- NOTE | 2022-09-29 11:27 | MM ---
Risk Values: Malka 5 year model risk: 2.3%. NCI Lifetime model risk: 7.7%. Electronically signed and approved by: Pasquale Ortega DO
[2022-09-29 12:05] VITALS: RESP 18
[2022-09-29 12:26] VITALS: BP 124/64; PULSE 66
== END 2022-09-29 12:46 | disposition home or self-care (01) ==
LOC: OR 07:48
PROVIDERS: ATTEND Surgery
DX: N64.89 Other specified disorders of breast (principal); E78.5 Hyperlipidemia, unspecified; M19.90 Unspecified osteoarthritis, unspecified site; F41.9 Anxiety disorder, unspecified; E07.9 Disorder of thyroid, unspecified; F32.A Depression, unspecified; Z86.010 Personal history of colon polyps; Z79.899 Other long term (current) drug therapy
CPT/HCPCS: 19125; 88342; 88307; 88341; 77065; 76098; 19285; C1819; J2250; J0330; J1100; J2405; J2001 ×2; J3010; J2704; J1644

== ENCOUNTER → 2022-10-12 | Outpatient (CLI) | payer MEDICARE ==
[2022-10-12 09:28] VITALS: BP 146/83; PULSE 95; RESP 17; TEMP 98.3
--- NOTE | 2022-10-12 09:37 | P.PN ---
Subjective Progress Note Date: 10/12/22 Principal diagnosis: Right breast invasive ductal carcinoma Mary Ann is a 67-year-old female who underwent an ultrasound-guided core biopsy of lesion in the right breast on . This revealed benign breast tissue but was considered nondiagnostic and possibly discordant. She therefore underwent a needle localization and excisional biopsy and [id number]. This revealed an 8 mm invasive ductal carcinoma grade 1 ER/DC positive HER-2/tiff negative. All margins (-). He tolerated the procedure without difficulty. She does complain of some residual numbness in her upper lip on the left side. This has improved. Objective - Vital Signs Vital signs: Vital Signs Temp 98.3 F 10/12/22 09:23 Pulse 95 10/12/22 09:23 Resp 17 10/12/22 09:23 BP 146/83 10/12/22 09:23 Pulse Ox 99 10/12/22 09:23 FiO2 Intake & Output 10/11/22 10/12/22 10/12/22 18:59 06:59 18:59 Weight 79.379 kg - Constitutional General appearance: Present: cooperative - EENT Eyes: Present: EOMI ENT: Present: hearing grossly normal - Neck Neck: Present: normal ROM - Respiratory Respiratory: bilateral: CTA - Cardiovascular Heart sounds: normal: S1, S2 - Integumentary Integumentary Comment(s): Incision clean and dry - Musculoskeletal Musculoskeletal: Present: gait normal - Psychiatric Psychiatric: Present: A&O x's 3, appropriate affect, intact judgment & insight Assessment and Plan Assessment: Impression: Right breast needle localization excisional biopsy 8 mm invasive ductal carcinoma T1 N0 M0 ER positive DC positive HER-2/tiff negative G1 stage IA Plan: Presentation of case at tumor board Consider sentinel node biopsy CC: Dr. Kaiser
--- NOTE | 2022-10-12 10:14 | P.PN ---
Subjective Progress Note Date: 10/12/22 Principal diagnosis: right breast stage IA invasive ductal cancer discordant right breast core biopsy/leading to needle localization excisional biopsy which was positive for invasive ductal carcinoma right breast stage IA Mary Ann rincon a 66-year-old white female was seen in consultation for Dr. Kaiser regarding an abnormal right breast mammogram. She underwent a bilateral mammogram on . There was a focal asymmetric density in the upper quadrant of the right breast which appeared to be enlarging over the interval since her last mammogram. The patient subsequently on 4522 underwent a diagnostic mammogram of the right breast as well as a right breast ultrasound. On the ultrasound she was noted to have an 8 x 9 mm heterogeneous hypoechoic oval mass at the 11 o'clock position. This was considered BIRADS 4 a core biopsy was recommended. [place] [id number] and this revealed benign breast tissue and was considered nondiagnostic and possibly discordant. The patient herself did not feel any lumps masses or nodules of concern in eithe r breast. She was not complaining of any nipple discharge or skin changes. She did not complain of any recent trauma or infection in the breast. She has had a right breast biopsy in 2004 this was benign. The patient on underwent a needle localization and excisional biopsy of the area of concern in the right breast. This revealed an 8 mm invasive ductal carcinoma. This was G1 ER positive. Positive HER-2 negative. All margins were negative. She tolerated the procedure well however she did complain of some numbness of her left upper lip. The numbness has improved. CAffiene: 1 cup coffee/day nictoine: none chocolate: daily BCP: 10 years in remote past Family history: father: leukemia Hormonal History: menarche: 12 M1, breast fed: yes, age at first : 24 menopause: 55 BCP: age [age] Surgical History: D&C right breast open biopsy bilateral wrist Medical History: hypothyroid glaucoma anxiety Social History: nicotine: none alcohol: occasional drugs: none - Constitutional Constitutional: Denies chills, Denies fever - EENT Eyes: denies blurred vision, denies pain Ears: deny: decreased hearing, tinnitus Ears, nose, mouth and throat: Denies headache, Denies sore throat - Breasts Breasts: bilateral: as per HPI - Cardiovascular Cardiovascular: Denies chest pain, Denies shortness of breath - Respiratory Respiratory: Denies cough - Gastrointestinal Gastrointestinal: Denies abdominal pain, Denies diarrhea, Denies nausea, Denies vomiting - Genitourinary (Female) Genitourinary: Denies dysuria, Denies hematuria - Menstruation Menstruation: Reports postmenopausal - Musculoskeletal Musculoskeletal: Denies myalgias - Integumentary Integumentary: Denies pruritus, Denies rash - Neurological Neurological: Denies numbness, Denies weakness - Psychiatric Psychiatric: Reports anxiety, Denies depression - Endocrine Endocrine: Denies fatigue, Denies weight change - Hematologic/Lymphatic Comment: none - Allergic/Immunologic Allergic/Immunologic: Reports seasonal allergies Past Medical History Past Medical History: Hyperlipidemia, Osteoarthritis (OA), Pneumonia, Thyroid Disorder Additional Past Medical History / Comment(s): hx colon polyps, History of Any Multi-Drug Resistant Organisms: None Reported Past Surgical History: Orthopedic Surgery Additional Past Surgical History / Comment(s): surgery on kaykay thumbs, kaykay cataracts, D&C, colonoscopy Past Anesthesia/Blood Transfusion Reactions: No Reported Reaction Past Psychological History: Anxiety Smoking Status: Never smoker Past Alcohol Use History: Occasional Past Drug Use History: None Reported - Past Family History Father Family Medical History: Cancer Additional Family Medical History / Comment(s): leukemia Medications and Allergies Home Medications Medication Instructions Recorded Confirmed Type Aspirin [Adult Low Dose Aspirin EC] 81 mg PO DAILY 11/02/17 07/09/22 History Cholecalciferol [Vitamin D3] 1,000 unit PO BID 11/02/17 07/09/22 History Cranberry Tab 1 tab PO DAILY 11/02/17 07/09/22 History Escitalopram [Lexapro] 10 mg PO HS 11/02/17 07/09/22 History I-Cool 1 tab PO DAILY 11/02/17 07/09/22 History Levothyroxine Sodium [Synthroid] 75 mcg PO DAILY 11/02/17 07/09/22 History Multivitamins, Thera [Multivitamin 1 tab PO DAILY 11/02/17 07/09/22 History (formulary)] Pravastatin Sodium [Pravachol] 20 mg PO HS 11/02/17 07/09/22 History Allergies Allergy/AdvReac Type Severity Reaction Status Date / Time No Known Allergies Allergy Verified 07/09/22 10:45 Objective - Vital Signs Vital signs: Vital Signs Temp 98.3 F 07/10/23 09:23 Pulse 95 10/12/22 09:23 Resp 17 10/12/22 09:23 BP 146/83 10/12/22 09:23 Pulse Ox 99 10/12/22 09:23 FiO2 Intake & Output 10/11/22 10/12/22 10/12/22 18:59 06:59 18:59 Weight 79.379 kg - Constitutional General appearance: Present: cooperative - EENT Eyes: Present: EOMI ENT: Present: hearing grossly normal - Neck Neck: Present: normal ROM - Respiratory Respiratory: bilateral: CTA - Cardiovascular Rhythm: regular Heart sounds: normal: S1, S2 - Gastrointestinal General gastrointestinal: Present: soft - Integumentary Integumentary: Present: normal turgor - Musculoskeletal Musculoskeletal: Present: gait normal - Psychiatric Psychiatric: Present: A&O x's 3, appropriate affect, intact judgment & insight - Additional findings Additional findings: Breast Exam: (from exam 09-16-22) BRA: 40D Inspection: Well-healed scar right breast from prior surgery, bilateral grade 3 ptosis; right breaset smaller than left breast Palpation: Right breast: Multiple positional exam no dominant masses or nodules of concern Right axilla: No adenopathy of concern Left breast: Multiple positional exam no dominant masses or nodules of concern Left axilla: No adenopathy of concern Assessment and Plan Assessment: Impression: Right breast needle localization excisional biopsy 8 mm invasive ductal carcinoma T1 N0 M0 ER positive RI positive HER-2/tiff negative G1 stage IA Plan: Presentation of case at tumor board Right sentinel node injection, right sentinel node biopsy, possible right axillary node dissection, possible injection of methylene blue dye for right axillary mapping Risks and benefits of sentinel node biopsy have been discussed with the patient and her . Risks include but are not limited to bleeding, infection, reaction to the anesthetic. Additionally she could have injury to the thoracodorsal and/or long thoracic nerves with winged scapula. Lymphedema is also discussed. We have discussed choosing wisely guidelines however the patient is not yet 70. The patient wishes to proceed with a sentinel node biopsy. We'll also discussed possible injection of methylene blue dye and the risks skin necrosis or tattooing of the skin. CC: Dr. Kaiser
== END ==
LOC: WWCWWP 09:15
PROVIDERS: ATTEND Surgery
DX: D05.11 Intraductal carcinoma in situ of right breast (principal); Z17.0 Estrogen receptor positive status [ER+]

== ENCOUNTER 2022-10-15 06:11 | Day surgery (SDC) | payer MEDICARE ==
[~2022-10-15 06:11] MED LIST changes: -DEXAMETHASONE SOD PHOSPHATE 4 MG/ML 1 ML VIAL IV ONE; -HYDROmorphone 0.5 MG/0.5 ML SYRINGE IVP PRN; -LACTATED RINGERS 1,000 ML IV SCH; -LIDOCAINE 1% (10MG/ML) FOR IV START INTRADERMA PRN; -MIDAZOLAM 2 MG/2 ML VIAL IV PRN; -ONDANSETRON 4 MG/2 ML VIAL IVP ONE
[2022-10-15] MEDS ORDERED: LACTATED RINGERS 1,000 ML IV ONE (06:49)
[2022-10-15] MEDS ORDERED: ONDANSETRON 4 MG/2 ML VIAL ONE (07:04)
[2022-10-15] MEDS ORDERED: ONDANSETRON 4 MG/2 ML VIAL IVP ONE (07:10)
[2022-10-15 07:12] VITALS: RESP 16
--- NOTE | 2022-10-15 07:36 | NM ---
EXAMINATION TYPE: NM sentinel node injection DATE OF EXAM: 10/15/2022 COMPARISON: 09/29/2022 CLINICAL INDICATION: Female, 67 years old with history of right BREAST CANCER C50.411; TECHNIQUE AND FINDINGS: The procedure of sentinel lymph node injection was explained to the patient. The benefits, alternatives, and risks were discussed. An informed consent was then obtained. Overlying skin is cleaned with sterile alcohol. Following this, 515 uCi Tc99m Tilmanocept was inject ed in the upper outer aspect of the right nipple intradermally. The patient tolerated the procedure well without any immediate complication. The patient was kept in the radiology department for short stay after the procedure and then taken to surgery for surgical p rocedure what is presumed intraoperative gamma probe will be used for sentinel lymph node detection. IMPRESSION: Right breast radiotracer injection for sentinel node localization as above.
[2022-10-15] MEDS ORDERED: MIDAZOLAM 2 MG/2 ML VIAL ONE (07:50)
[2022-10-15] MEDS ORDERED: ePHEDrine 50 MG/ML 1 ML VIAL ONE (07:50)
[2022-10-15] MEDS ORDERED: fentaNYL (PF) 50 MCG/ML 2 ML AMP ONE (07:50)
[2022-10-15] MEDS ORDERED: LIDOCAINE 2% INJ 20 MG/ML (2 ML VIAL) ONE (07:50)
[2022-10-15] MEDS ORDERED: PROPOFOL 10 MG/ML 20 ML VIAL IV ONE (07:50)
--- NOTE | 2022-10-15 07:54 | P.NAPBC ---
NAP Queries - [facility] Queries Was patient's case review presented at [facility] tumor board? If no, comment.: Yes Was patient's pathology reviewed at [facility]? If no, comment.: Yes Was breast conservation surgery offered? If no, comment.: Yes Was sentinel node biopsy offered? If no, comment.: Yes Was diagnosis confirmed by percutaneous core biopsy? If no, comment.: No Is patient mastectomy patient?: No Was a preop referral to reconstructive surgeon offered?: No [facility] Comments: diagnosis made on open biopsy for discordant core biopsy right breast lesion; 8 mm invasive ductal cancer Clinical Stage: stage 1 right breast invasive ductal cancer
--- NOTE | 2022-10-15 08:42 | P.OP ---
Date of Procedure: 10/15/22 Preoperative Diagnosis: Right breast invasive ductal carcinoma/patient is having sentinel node biopsy Postoperative Diagnosis: Randolph node biopsy right axilla Procedure(s) Performed: Right breast sentinel node biopsy Anesthesia: SISI Surgeon: Caterina Pratt Estimated Blood Loss (ml): 5 IV fluids (ml): 600 Pathology: other (Right sentinel lymph node/axillary tissue) Condition: stable Disposition: same day Indications for Procedure: Biopsy-proven right breast lumpectomy for invasive ductal carcinoma done for discordant biopsy, now patient is going to have sentinel node biopsy for completion of staging Operative Findings: Positive radioactive right axillary lymph node Description of Procedure: The patient is a 67-year-old white female who underwent a right breast needle localization and removal of a discordant core biopsy. Pathology revealed an 8 mm invasive ductal carcinoma. Therefore she returns for sentinel node biopsy for staging and possible different treatment consideration. The patient in the preoperative area had injection of radiotracer in the periareolar region. She was then brought to the operative suite. Following induction of anesthesia using the neoprobe area of radioactivity was noted in the right axilla. Following this the patient was prepped and draped in a sterile fashion. The neoprobe was used to interrogate the area of greatest radioactivity in the right axilla. Once this was identified and incision was made at that site. Dissection was carried down to the deep axillary tissues. The area of greatest radioactivity was identified. This was grasped using an Allis clamp. The node was removed. The 10 second count was 2232. The background 10 second count was 10. No additional adenopathy of concern was identified. The wound was well irrigated. The deep tissues were closed using 3-0 Vicryl suture. A subcuticular 4-0 Monocryl. Steri-Strips were placed. The patient tolerated the procedure in stable condition. All instrument and sponge counts were correct at the end of the case.
[2022-10-15 08:56] VITALS: TEMP 96.8
[2022-10-15 11:15] VITALS: BP 145/74; PULSE 68
== END 2022-10-15 10:30 | disposition home or self-care (01) ==
LOC: OR 06:11
PROVIDERS: ATTEND Surgery
DX: C50.911 Malignant neoplasm of unspecified site of right female breast (principal); E78.5 Hyperlipidemia, unspecified; E03.9 Hypothyroidism, unspecified; F41.9 Anxiety disorder, unspecified; M19.90 Unspecified osteoarthritis, unspecified site; J18.9 Pneumonia, unspecified organism; F10.90 Alcohol use, unspecified, uncomplicated; Z79.82 Long term (current) use of aspirin; Z79.890 Hormone replacement therapy; Z79.899 Other long term (current) drug therapy
CPT/HCPCS: 88342; 88307; 88341; 38792; 38525; A9520; J2250; J2405; J3010; J2704; J1644; J2001

== ENCOUNTER → 2022-10-30 | Outpatient (CLI) | payer MEDICARE ==
[2022-10-30 13:11] VITALS: BP 164/75; PULSE 79; RESP 17; TEMP 97.9
--- NOTE | 2022-10-30 13:17 | P.PN ---
Progress Note - Text Progress Note Date: 10/30/22 Mary Ann is a 67 year old female status post SNB right on 10-15-22. 4 nodes removed all (-) for cancer. She had a right breast needle localization and lumpectomy on 09-29-22 for a discordant core biopsy which revealed an 8mm invasive ductal cancer G1, ER+, Pr+, Her2-. Already the procedure without difficulty. Impression exam: Lungs: Clear Heart: Regular rate and rhythm Incision: Clean and dry in the axilla Patient has been seen by medical and radiation oncology Plan: Patient will start radiation therapy on medical oncology hormone therapy after radiation follow up here in 4 months CC: Dr. Kaiser
== END ==
LOC: WWCWWP 12:41
PROVIDERS: ATTEND Surgery
DX: Z04.9 Encounter for examination and observation for unspecified reason (principal); D05.11 Intraductal carcinoma in situ of right breast; Z17.0 Estrogen receptor positive status [ER+]; Z90.11 Acquired absence of right breast and nipple

== ENCOUNTER → 2022-12-21 | Outpatient (CLI) | payer MEDICARE ==
--- NOTE | 2022-12-21 16:33 | BD ---
EXAMINATION TYPE: Axial Bone Density DATE OF EXAM: 12/21/2022 CLINICAL HISTORY: 67 years old Female. ICD-10 CODE: C50.411 breast ca Height: 63.5" Weight: 169.3lbs FRAX RISK QUESTIONS: Alcohol (3 or more units per day): No Family History (Parent hip fracture): No Glucocorticoids (More than 3mos): No (Ex: prednisone, prednisolone, methylprednisolone, dexamethasone, and hydrocortisone). History of Fracture in Adulthood: Yes, right tib/fib Secondary Osteoporosis: 1. Type 1 Diabetes: No 2. Hyperthyroidism: No 3. Menopause before 45: No 4. Malnutrition: No 5. Chronic liver disease: No Rheumatoid Arthritis: No Current Tobacco Use: No RISK FACTORS HISTORY OF: Hip Fracture (Right/Left): No Spine Fracture: No History of Wrist Fracture: No Surgery to Spine/Hip(right/left)/Wrist (right/left): No Family History of Osteoporosis: Yes, Mother Active: Yes Diet low in dairy products/other sources of calcium: No Postmenopausal woman: Yes Take estrogen and/or progesterone medications: Not Currently but did take Estroven for 15 years Lost more than 2 inches in height since high school: No Frequent falls: No Poor Health: No Hyperparathyroidism: No Adrenal Insufficiency: No MEDICATIONS: Prednisone or other steroids: No Thyroid Medications: Yes Which medication: Levothyroxine How Lon years, currently taking Osteoporosis Medications: Which medication: Estroven, but discontinued recently Additional Medications: Cholesterol meds, Hormone nata (generic Arimidex), Calcium and Vitamin D, Escitalopram, Xanax as needed, Glucosamine, Fish Oil Additional History: Breast cancer diagnosis in September 2022, with radiation therapy EXAM MEASUREMENTS: Bone mineral densitometry was performed using the Carlotz System. Bone mineral density as measured about the Lumbar spine is: ----- L1-L4(G/cm2): 1.088 T Score Values are as follows: ----- L1: -1.0 ----- L2: -0.6 ----- L3: -1.0 ----- L4: -0.6 ----- L1-L4: -0.8 Z Score Values are as follows: ----- L1: 0.2 ----- L2: 0.6 ----- L3: 0.2 ----- L4: 0.6 ----- L1-L4: 0.5 Bone mineral density has: increased 0.7% since study of: 03/15/2020 Bone mineral density about the R hip (g/cm2): 0.865 Bone mineral density about the L hip (g/cm2): 0.865 T Score values are as follows: -----R Neck: -1.5 -----L Neck: -1.7 -----R Total: -1.1 -----L Total: -1.1 Z Score values are as follows: -----R Neck: -0.2 -----L Neck: -0.4 -----R Total: -0.1 -----L Total: -0.1 Bone mineral density has: decreased -0.7% since study of: 03/15/2020 FRAX%s: The graph provided illustrates a 16.0% chance for a major osteoporotic fx and a 2.2% chance f or the hips probability for fx in 10 years time. IMPRESSION: Osteopenia (T Score between -2.5 and -1). There is slightly increased risk of fracture and the patient may be considered for treatment. Re-Screen 2-5 years. NOTE: T-SCORE=SD OF THE YOUNG ADULT MEAN.
== END | disposition home or self-care (01) ==
LOC: RADBDWWP 14:53
PROVIDERS: ATTEND Internal Medicine
DX: C50.411 Malignant neoplasm of upper-outer quadrant of right female breast (principal); M85.89 Other specified disorders of bone density and structure, multiple sites; Z71.3 Dietary counseling and surveillance
CPT/HCPCS: 77080

== ENCOUNTER → 2023-03-11 | Outpatient (CLI) | payer MEDICARE ==
--- NOTE | 2023-03-11 15:19 | P.PN ---
Subjective Progress Note Date: 03/11/23 discordant right breast core biopsy Abnormal right breast mammogram Mary Ann rincon a 66-year-old white female was seen in consultation for Dr. Kaiser regarding an abnormal right breast mammogram. She underwent a bilateral mammogram on . There was a focal asymmetric density in the upper quadran t of the right breast which appeared to be enlarging over the interval since her last mammogram. The patient subsequently on 4522 underwent a diagnostic mammogram of the right breast as well as a right breast ultrasound. On the ultrasound she was noted to have an 8 x 9 mm heterogeneous hypoechoic oval mass at the 11 o'clock position. This was considered BIRADS 4 a core biopsy was recommended. Core biopsy was performed and and this revealed benign breast tissue and was considered nondiagnostic and possibly discordant. The patient herself does not feel any lumps masses or nodules of concern in either breast. She is not complaining of any nipple discharge or skin changes. She does not complain of any recent trauma or infection in the breast. She has had a right breast biopsy in 2004 this was benign. 03-11-23 Abnormal right breast mammogram 07-03-22 /ultrasound discordant core biopsy; led to resection on 09-29-22 which revealed 8 mm invasive ductal cancer; SNB on 10-15-22 4 nodes all (-) [id number]+Her2(-) She feels post surgical and post radiation changes oncotype 12 note radiation oncology 10-28-22 reviewed; finished radiation on 12-01-[address] Óscar Dutta on annestrazole; does complain of aching joints She complains of tightness under her right arm when she lifts it; she has not seen physical therapy CAffiene: 1 cup coffee/day nictoine: none chocolate: daily BCP: 10 years in remote past Family history: father: leukemia Hormonal History: menarche: 12 M1, breast fed: yes, age at first : 24 menopause: 55 BCP: age [age] Surgical History: D&C right breast open biopsy bilateral wrist right SNB Medical History: hypothyroid glaucoma anxiety Social History: nicotine: none alcohol: occasional drugs: none - Constitutional Constitutional: Denies chills, Denies fever - EENT Eyes: denies blurred vision, denies pain Ears: deny: decreased hearing, tinnitus Ears, nose, mouth and throat: Denies headache, Denies sore throat - Breasts Breasts: bilateral: as per HPI - Cardiovascular Cardiovascular: Denies chest pain, Denies shortness of breath - Respiratory Respiratory: Denies cough - Gastrointestinal Gastrointestinal: Denies abdominal pain, Denies diarrhea, Denies nausea, Denies vomiting - Genitourinary (Female) Genitourinary: Denies dysuria, Denies hematuria - Menstruation Menstruation: Reports postmenopausal - Musculoskeletal Musculoskeletal: Denies myalgias - Integumentary Integumentary: Denies pruritus, Denies rash - Neurological Neurological: Denies numbness, Denies weakness - Psychiatric Psychiatric: Reports anxiety, Denies depression - Endocrine Endocrine: Denies fatigue, Denies weight change - Hematologic/Lymphatic Comment: none - Allergic/Immunologic Allergic/Immunologic: Reports seasonal allergies Past Medical History Past Medical History: Hyperlipidemia, Osteoarthritis (OA), Pneumonia, Thyroid Disorder Additional Past Medical History / Comment(s): hx colon polyps, History of Any Multi-Drug Resistant Organisms: None Reported Past Surgical History: Orthopedic Surgery Additional Past Surgical History / Comment(s): surgery on kaykay thumbs, kaykay cataracts, D&C, colonoscopy Past Anesthesia/Blood Transfusion Reactions: No Reported Reaction Past Psychological History: Anxiety Smoking Status: Never smoker Past Alcohol Use History: Occasional Past Drug Use History: None Reported - Past Family History Father Family Medical History: Cancer Additional Family Medical History / Comment(s): leukemia Medications and Allergies Home Medications Medication Instructions Recorded Confirmed Type Aspirin [Adult Low Dose Aspirin EC] 81 mg PO DAILY 11/02/17 07/09/22 History Cholecalciferol [Vitamin D3] 1,000 unit PO BID 11/02/17 07/09/22 History Cranberry Tab 1 tab PO DAILY 11/02/17 07/09/22 History Escitalopram [Lexapro] 10 mg PO HS 11/02/17 07/09/22 History I-Cool 1 tab PO DAILY 11/02/17 07/09/22 History Levothyroxine Sodium [Synthroid] 75 mcg PO DAILY 11/02/17 07/09/22 History Multivitamins, Thera [Multivitamin 1 tab PO DAILY 11/02/17 07/09/22 History (formulary)] Pravastatin Sodium [Pravachol] 20 mg PO HS 11/02/17 07/09/22 History Allergies Allergy/AdvReac Type Severity Reaction Status Date / Time No Known Allergies Allergy Verified 07/09/22 10:45 Objective - Vital Signs Vital signs: Vital Signs Temp 98.1 F 03/11/23 14:59 Pulse 74 03/11/23 14:59 Resp 16 03/11/23 14:59 BP 133/82 03/11/23 14:59 Pulse Ox 97 03/11/23 14:59 FiO2 Intake & Output 03/10/23 03/11/23 03/11/23 18:59 06:59 18:59 Weight 77.111 kg - Constitutional General appearance: Present: cooperative - EENT Eyes: Present: EOMI ENT: Present: hearing grossly normal - Neck Neck: Present: normal ROM - Respiratory Respiratory: bilateral: CTA - Cardiovascular Heart sounds: normal: S1, S2 - Integumentary Integumentary: Present: normal turgor - Musculoskeletal Musculoskeletal: Present: gait normal - Psychiatric Psychiatric: Present: A&O x's 3, appropriate affect, intact judgment & insight - Additional findings Additional findings: Breast Exam: BRA: 40D Inspection: Well-healed scar right breast from prior surgery, bilateral grade 3 ptosis; right breast smaller than left breast Palpation: Right breast: Multiple positional exam surgical and postradiation changes, well- healed scars no discrete dominant masses or nodules of concern; the skin of the breast is more erythematous than the contralateral side which is believed to be secondary to radiation changes Right axilla: No adenopathy of concern Left breast: Multiple positional exam no dominant masses or nodules of concern Left axilla: No adenopathy of concern Assessment and Plan Assessment: Impression: Abnormal right breast mammogram/ultrasound discordant core biopsy; led to resection on 09-29-22 invasive ductal cancer; SNB on 10-15-22 4 nodes all (-) Hypothyroid Completed radiation therapy in November 2022 Patient presently on anastrozole Plan: Continue anastrozole Bilateral mammogram in June 2023 with examination at that time Consider physical therapy secondary to tightness and right axilla Follow-up with medical oncology Follow up here sooner any questions or concerns CC: Awilad
[2023-03-11 15:26] VITALS: BP 133/82; PULSE 74; RESP 16; TEMP 98.1
== END ==
LOC: WWCWWP 14:36
PROVIDERS: ATTEND Surgery
DX: E03.9 Hypothyroidism, unspecified (principal); E78.5 Hyperlipidemia, unspecified; M19.90 Unspecified osteoarthritis, unspecified site; N64.89 Other specified disorders of breast; Z79.890 Hormone replacement therapy; Z92.3 Personal history of irradiation

== ENCOUNTER → 2023-07-05 | Outpatient (CLI) | payer MEDICARE ==
--- NOTE | 2023-07-05 08:33 | MM ---
Reason for Exam: Additional evaluation requested from prior study. Last mammogram was performed 1 year(s) and 1 month(s) ago. Patient History: Menarche at age 12. First Full-Term at age 24. Postmenopausal. Patient has history of breast feeding. Breast cancer, right, age 67. Previous chest radiation therapy at age 67. Patient used Estrogen for 1 year. Patient used Hormonal Contraceptives for 9 years. 09/29/2022, Lumpectomy on the Right side. 09/29/2022, Malignant US breast localization RT on the right side. 07/23/2022, US biopsy breast VAD RT on the Right side. Benign Excisional Biopsy on the right side. Prior Study Comparison: 02/19/2017 Bilateral Screening Mammogram, [facility]. 03/23/2018 Bilateral Screening Mammogram, [facility]. 05/11/2019 Bilateral Screening Mammogram, [facility] 02/20/2020 Bilateral Diagnostic Mammogram, [facility]. 04/08/2021 Bilateral Screening Mammogram, [facility]. 07/03/2022 Bilateral MG 3D screening mammo w/cad, [facility]. 07/08/2022 Right MG 3D work up w/cad RT, [facility]. 07/23/2022 Right MG diagnostic mammo RT wo CAD, [facility]. 09/29/2022 Right MG diagnostic mammo RT wo CAD, [facility]. Tissue Density: There are scattered areas of fibroglandular density. Findings: Analyzed By CAD. The pattern is symmetrical. Surgical clips are within the upper outer quadrant right breast. There is increased density in this region. Patient is post treatment. Benign spherical calcifications are present bilaterally. Right breast is smaller than the left. No suspicious groups of microcalcifications, spiculated or lobular masses, architectural distortion or other secondary signs of malignancy are mammographically apparent. Overall Assessment: Benign, BI-RAD 2 Management: Diagnostic Mammogram of both breasts in 1 year. A negative mammogram report should not preclude additional follow up of suspicious palpable abnormalities. Patient should continue monthly self breast exam. A clinical breast exam by your physician is recommended on an annual basis and results should be correlated with mammographic findings. Electronically signed and approved by: Donta Blas D.O. Radiologis
== END | disposition home or self-care (01) ==
LOC: RADMAMWWP 07:57
PROVIDERS: ATTEND Surgery
DX: R92.323 Mammographic fibroglandular density, bilateral breasts (principal); R92.1 Mammographic calcification found on diagnostic imaging of breast; Z85.3 Personal history of malignant neoplasm of breast; Z78.0 Asymptomatic menopausal state
CPT/HCPCS: 77062; 77066

== ENCOUNTER → 2023-07-09 | Outpatient (CLI) | payer MEDICARE ==
--- NOTE | 2023-07-09 14:36 | P.PN ---
Subjective Progress Note Date: 07/09/23 Subjective Progress Note Date: 07-09-23 discordant right breast core biopsy Abnormal right breast mammogram Mary Ann is a 66-year-old white female was seen in consultation for Dr. Kaiser regarding an abnormal right breast mammogram. She underwent a bilateral mammogram on . There was a focal asymmetric density in the upper quadrant of the right breast which appeared to be enlarging over the interval since her last mammogram. The patient subsequently on 4522 underwent a diagnostic mammogram of the right breast as well as a right breast ultrasound. On the ultrasound she was noted to have an 8 x 9 mm heterogeneous hypoechoic oval mass at the 11 o'clock position. This was considered BIRADS 4 a core biopsy was recommended. Core biopsy was performed and and this revealed benign breast tissue and was considered nondiagnostic and possibly discordant. The patient herself did not feel any lumps masses or nodules of concern in either breast. She was not complaining of any nipple discharge or skin changes. She did not complain of any recent trauma or infection in the breast. She had had a right breast biopsy in 2004 this was benign. Abnormal right breast mammogram 07-03-22 /ultrasound discordant core biopsy; led to resection on 09-29-22 which revealed 8 mm invasive ductal cancer; SNB on 10-15-22 4 nodes all (-) [id number]+Her2(-) She feels post surgical and post radiation changes oncotype 12 finished radiation on 12-01-[address] Dutta 06-10-23 reviewed; following with DR. Óscar Dutta on anastrazole; does complain of aching joints has decreased dose and frequency and tolerating better She complains of tightness under her right arm when she lifts it; she has now seen physical therapy and this is better, but she did see DR. Whitney who was concerned about some lymphedema in the breast and she is going to see physical therapy again bilateral mammogram on 07-05-23 BIRAD 2 CAffiene: 1 cup coffee/day nictoine: none chocolate: daily BCP: 10 years in remote past Family history: father: leukemia Hormonal History: menarche: 12 M1, breast fed: yes, age at first : 24 menopause: 55 BCP: age [age] Surgical History: D&C right breast open biopsy bilateral wrist right SNB Medical History: hypothyroid glaucoma anxiety Social History: nicotine: none alcohol: occasional drugs: none - Constitutional Constitutional: Denies chills, Denies fever - EENT Eyes: denies blurred vision, denies pain Ears: deny: decreased hearing, tinnitus Ears, nose, mouth and throat: Denies headache, Denies sore throat - Breasts Breasts: bilateral: as per HPI - Cardiovascular Cardiovascular: Denies chest pain, Denies shortness of breath - Respiratory Respiratory: Denies cough - Gastrointestinal Gastrointestinal: Denies abdominal pain, Denies diarrhea, Denies nausea, Denies vomiting - Genitourinary (Female) Genitourinary: Denies dysuria, Denies hematuria - Menstruation Menstruation: Reports postmenopausal - Musculoskeletal Musculoskeletal: Denies myalgias - Integumentary Integumentary: Denies pruritus, Denies rash - Neurological Neurological: Denies numbness, Denies weakness - Psychiatric Psychiatric: Reports anxiety, Denies depression - Endocrine Endocrine: Denies fatigue, Denies weight change - Hematologic/Lymphatic Comment: none - Allergic/Immunologic Allergic/Immunologic: Reports seasonal allergies Past Medical History Past Medical History: Hyperlipidemia, Osteoarthritis (OA), Pneumonia, Thyroid Disorder Additional Past Medical History / Comment(s): hx colon polyps, History of Any Multi-Drug Resistant Organisms: None Reported Past Surgical History: Orthopedic Surgery Additional Past Surgical History / Comment(s): surgery on kaykay thumbs, kaykay cataracts, D&C, colonoscopy Past Anesthesia/Blood Transfusion Reactions: No Reported Reaction Past Psychological History: Anxiety Smoking Status: Never smoker Past Alcohol Use History: Occasional Past Drug Use History: None Reported - Past Family History Father Family Medical History: Cancer Additional Family Medical History / Comment(s): leukemia Medications and Allergies Home Medications Medication Instructions Recorded Confirmed Type Aspirin [Adult Low Dose Aspirin EC] 81 mg PO DAILY 11/02/17 07/09/22 History Cholecalciferol [Vitamin D3] 1,000 unit PO BID 11/02/17 07/09/22 History Cranberry Tab 1 tab PO DAILY 11/02/17 07/09/22 History Escitalopram [Lexapro] 10 mg PO HS 11/02/17 07/09/22 History I-Cool 1 tab PO DAILY 11/02/17 07/09/22 History Levothyroxine Sodium [Synthroid] 75 mcg PO DAILY 11/02/17 07/09/22 History Multivitamins, Thera [Multivitamin 1 tab PO DAILY 11/02/17 07/09/22 History (formulary)] Pravastatin Sodium [Pravachol] 20 mg PO HS 11/02/17 07/09/22 History Allergies Allergy/AdvReac Type Severity Reaction Status Date / Time No Known Allergies Allergy Verified 07/09/22 10:45 Objective - Constitutional General appearance: Present: cooperative - EENT Eyes: Present: EOMI ENT: Present: hearing grossly normal - Neck Neck: Present: normal ROM - Respiratory Respiratory: bilateral: CTA - Cardiovascular Rhythm: regular Heart sounds: normal: S1, S2 - Gastrointestinal General gastrointestinal: Present: soft - Integumentary Integumentary: Present: normal turgor - Musculoskeletal Musculoskeletal: Present: gait normal - Psychiatric Psychiatric: Present: A&O x's 3, appropriate affect, intact judgment & insight - Additional findings Additional findings: Breast Exam: BRA: 40D Inspection: Well-healed scar right breast from prior surgery, bilateral grade 3 ptosis; right breast smaller than left breast Palpation: Right breast: Multiple positional exam surgical and postradiation changes, well- healed scars no discrete dominant masses or nodules of concern; the skin of the breast is more erythematous than the contralateral side which is believed to be secondary to radiation changes Right axilla: No adenopathy of concern Left breast: Multiple positional exam no dominant masses or nodules of concern Left axilla: No adenopathy of concern Assessment and Plan Assessment: Impression: Abnormal right breast mammogram/ultrasound discordant core biopsy; led to resection on 09-29-22 invasive ductal cancer; SNB on 10-15-22 4 nodes all (-) Hypothyroid Completed radiation therapy in November 2022 Patient presently on anastrozole bilateral mammogram on 07-05-23 BIRAD 2 Plan: Continue anastrozole Bilateral mammogram in June 2024 with examination at that time physical therapy secondary to edema in right breast Appointment in 6 months for examination Follow-up with medical oncology Follow up here sooner any questions or concerns CC: Awilda
[2023-07-09 14:54] VITALS: BP 154/68; PULSE 78; RESP 17; TEMP 97.8
== END ==
LOC: WWCWWP 13:44
PROVIDERS: ATTEND Surgery
DX: R92.8 Other abnormal and inconclusive findings on diagnostic imaging of breast (principal); N64.89 Other specified disorders of breast; E03.9 Hypothyroidism, unspecified; Z92.3 Personal history of irradiation; Z79.890 Hormone replacement therapy

== ENCOUNTER → 2024-01-13 | Outpatient (CLI) | payer MEDICARE ==
[2024-01-13 10:38] VITALS: BP 135/82; PULSE 62; RESP 17; TEMP 98
--- NOTE | 2024-01-13 11:17 | P.PN ---
Subjective Progress Note Date: 01/13/24 Principal diagnosis: stage 1 right breast invasive ductal cancer 2022, [id number] Subjective Progress Note Date: 01-13-24 stage 1 IDC right breast 2022 Mary Ann is a 68-year-old white female was seen in consultation for Dr. Kaiser regarding an abnormal right breast mammogram. She underwent a bilateral mammogram on . There was a focal asymmetric density in the upper quadrant of the right breast which appeared to be enlarging over the interval since her last mammogram. The patient subsequently on 4522 underwent a diagnostic mammogram of the right breast as well as a right breast ultrasound. On the ultrasound she was noted to have an 8 x 9 mm heterogeneous hypoechoic oval mass at the 11 o'clock position. This was considered BIRADS 4 a core biopsy was recommended. Core biopsy was performed and and this revealed benign breast tissue and was considered nondiagnostic and possibly discordant. The patient herself did not feel any lumps masses or nodules of concern in either breast. She was not complaining of any nipple discharge or skin changes. She did not complain of any recent trauma or infection in the breast. She had had a right breast biopsy in 2004 this was benign. Abnormal right breast mammogram 07-03-22 /ultrasound discordant core biopsy; led to resection on 09-29-22 which revealed 8 mm invasive ductal cancer; SNB on 10-15-22 4 nodes all (-) [id number](-) pathologic staging She feels post surgical and post radiation changes oncotype 12 finished radiation on 12-01-[address] Dutta 09-09-23 reviewed; following with DR. Óscar Dutta on anastrazole; did complain of aching joints has decreased dose and frequency and tolerating better; aso taking vit D/calcium/Fosamax She complains of tightness under her right arm when she lifts it; she has now seen physical therapy and this is better, but she did see DR. Whitney who was concerned about some lymphedema in the breast and she is going to see physical therapy again bilateral mammogram on 07-05-23 BIRAD 2 She has had a 10 pound intentional weight loss over the past year. She did have some cording under her right arm, which has improved with physical therapy. Also the edema in her breast which has improved with massage of her breast. She is not compalining of any lymphedema. CAffiene: 1 cup coffee/day nictoine: none chocolate: daily BCP: 10 years in remote past Family history: father: leukemia Hormonal History: menarche: 12 M1, breast fed: yes, age at first : 24 menopause: 55 BCP: age [age] Surgical History: D&C right breast open biopsy bilateral wrist right SNB Medical History: hypothyroid glaucoma anxiety Social History: nicotine: none alcohol: occasional drugs: none - Constitutional Constitutional: Denies chills, Denies fever - EENT Eyes: denies blurred vision, denies pain Ears: deny: decreased hearing, tinnitus Ears, nose, mouth and throat: Denies headache, Denies sore throat - Breasts Breasts: bilateral: as per HPI - Cardiovascular Cardiovascular: Denies chest pain, Denies shortness of breath - Respiratory Respiratory: Denies cough - Gastrointestinal Gastrointestinal: Denies abdominal pain, Denies diarrhea, Denies nausea, Denies vomiting - Genitourinary (Female) Genitourinary: Denies dysuria, Denies hematuria - Menstruation Menstruation: Reports postmenopausal - Musculoskeletal Musculoskeletal: Denies myalgias - Integumentary Integumentary: Denies pruritus, Denies rash - Neurological Neurological: Denies numbness, Denies weakness - Psychiatric Psychiatric: Reports anxiety, Denies depression - Endocrine Endocrine: Denies fatigue, Denies weight change - Hematologic/Lymphatic Comment: none - Allergic/Immunologic Allergic/Immunologic: Reports seasonal allergies Past Medical History Past Medical History: Hyperlipidemia, Osteoarthritis (OA), Pneumonia, Thyroid Disorder Additional Past Medical History / Comment(s): hx colon polyps, History of Any Multi-Drug Resistant Organisms: None Reported Past Surgical History: Orthopedic Surgery Additional Past Surgical History / Comment(s): surgery on kaykay thumbs, kaykay cataracts, D&C, colonoscopy Past Anesthesia/Blood Transfusion Reactions: No Reported Reaction Past Psychological History: Anxiety Smoking Status: Never smoker Past Alcohol Use History: Occasional Past Drug Use History: None Reported - Past Family History Father Family Medical History: Cancer Additional Family Medical History / Comment(s): leukemia Medications and Allergies Home Medications Medication Instructions Recorded Confirmed Type Aspirin [Adult Low Dose Aspirin EC] 81 mg PO DAILY 11/02/17 07/09/22 History Cholecalciferol [Vitamin D3] 1,000 unit PO BID 11/02/17 07/09/22 History Cranberry Tab 1 tab PO DAILY 11/02/17 07/09/22 History Escitalopram [Lexapro] 10 mg PO HS 11/02/17 07/09/22 History I-Cool 1 tab PO DAILY 11/02/17 07/09/22 History Levothyroxine Sodium [Synthroid] 75 mcg PO DAILY 11/02/17 07/09/22 History Multivitamins, Thera [Multivitamin 1 tab PO DAILY 11/02/17 07/09/22 History (formulary)] Pravastatin Sodium [Pravachol] 20 mg PO HS 11/02/17 07/09/22 History Allergies Allergy/AdvReac Type Severity Reaction Status Date / Time No Known Allergies Allergy Verified 07/09/22 10:45 Objective - Vital Signs Vital signs: Vital Signs Temp 98.0 F 01/13/24 10:33 Pulse 62 01/13/24 10:33 Resp 17 01/13/24 10:33 BP 135/82 01/13/24 10:33 Pulse Ox 98 01/13/24 10:33 FiO2 Intake & Output 01/12/24 01/13/24 01/13/24 18:59 06:59 18:59 Weight 76.204 kg - Constitutional General appearance: Present: cooperative - EENT Eyes: Present: EOMI ENT: Present: hearing grossly normal - Neck Neck: Present: normal ROM - Respiratory Respiratory: bilateral: CTA - Cardiovascular Rhythm: regular Heart sounds: normal: S1, S2 - Integumentary Integumentary: Present: normal turgor - Musculoskeletal Musculoskeletal: Present: gait normal - Psychiatric Psychiatric: Present: A&O x's 3, appropriate affect, intact judgment & insight - Additional findings Additional findings: Breast Exam: BRA: 40D Inspection: Well-healed scar right breast from prior surgery, bilateral grade 3 ptosis; right breast smaller than left breast Palpation: Right breast: Multiple positional exam surgical and postradiation changes, well- healed scars no discrete dominant masses or nodules of concern; the skin of the breast is more erythematous than the contralateral side which is believed to be secondary to radiation changes Right axilla: No adenopathy of concern Left breast: Multi positional exam no dominant masses or nodules of concern Left axilla: No adenopathy of concern Assessment and Plan Assessment: Impression: Abnormal right breast mammogram/ultrasound discordant core biopsy; led to resection on 09-29-22 invasive ductal cancer; SNB on 10-15-22 4 nodes all (-) Hypothyroid Completed radiation therapy in November 2022 Patient presently on anastrozole bilateral mammogram on 07-05-23 BIRAD 2 Plan: Continue anastrozole Bilateral mammogram in June 2024 with examination at that time physical therapy secondary to edema in right breast Appointment in 6 months for examination Follow-up with medical oncology Follow up here sooner any questions or concerns 20 minutes spent reviewing the patient's medical records, examining the patient, and discussing treatment options with the patient. Treatment options discussed included not only cancer surveillance,hormones replacement therapy, but also lymphedema of the breast and massage of the breast to resolve this. Additionally we discussed lymphedema of the arm. CC: Awilda
== END ==
LOC: WWCWWP 09:59
PROVIDERS: ATTEND Surgery

== ENCOUNTER → 2024-07-05 | Outpatient (CLI) | payer MEDICARE ==
--- NOTE | 2024-07-05 10:31 | MM ---
Reason for Exam: Hx of breast cancer, conservation therapy. Last screening mammogram was performed 12 month(s) ago. Patient History: Menarche at age 12. First Full-Term at age 24. Postmenopausal. Patient has history of breast feeding. Breast cancer, right, age 67. Previous chest radiation therapy at age 67. Patient used Estrogen for 1 year. Patient used Hormonal Contraceptives for 9 years. 09/29/2022, Lumpectomy on the Right side. 09/29/2022, Malignant US breast localization RT on the right side. 07/23/2022, US biopsy breast VAD RT on the Right side. Benign Excisional Biopsy on the right side. Prior Study Comparison: 07/22/2012 Bilateral Screening Mammogram, [facility]. 10/04/2013 Bilateral Screening Mammogram, [facility]. 11/26/2014 Bilateral Screening Mammogram, [facility]. 12/31/2015 Bilateral Screening Mammogram, [facility]. 02/19/2017 Bilateral Screening Mammogram, [facility]. 03/23/2018 Bilateral Screening Mammogram, [facility]. 05/11/2019 Bilateral Screening Mammogram, [facility]. 05/23/2019 Bilateral Diagnostic Ultrasound, [facility]. 02/20/2020 Bilateral Diagnostic Mammogram, [facility]. 04/08/2021 Bilateral Screening Mammogram, [facility]. 07/03/2022 Bilateral MG 3D screening mammo w/cad, [facility]. 07/08/2022 Right US breast workup limited RT, [facility]. 07/08/2022 Right MG 3D work up w/cad RT, [facility]. 07/23/2022 Right MG diagnostic mammo RT wo CAD, [facility] 09/29/2022 Right MG diagnostic mammo RT wo CAD, [facility]. 07/05/2023 Bilateral MG 3D diag mammo w/cad JONNIE, [facility]. Tissue Density: The breasts are heterogeneously dense, which may obscure small masses. Findings: Analyzed By CAD. Post Operative changes of right-sided lumpectomy without evidence for recurrent mass. No suspicious microcalcifications evident. Overall Assessment: Benign, BI-RAD 2 Management: Diagnostic Mammogram of both breasts in 1 year. . Results were given to the patient verbally at the time of exam. Patient should continue monthly self-breast exams. A clinical breast exam by your physician is recommended on an annual basis. This exam should not preclude additional follow-up of suspicious palpable abnormalities. Note on Malka scores and lifetime risk: 1. A Malka score greater than 3% is considered moderate risk. If this is the case, consider specialist referral to assess eligibility for a risk reducing agent. 2. If overall lifetime risk for the development of breast cancer is 20% or higher, the patient may qualify for future screening with alternating mammogram and breast MRI. [facility], , 07/05/2024 10:18 AM. Electronically signed and approved by: Andrey Ward M.D. Radiologis
== END | disposition home or self-care (01) ==
LOC: RADMAMWWP 09:43
PROVIDERS: ATTEND Surgery
DX: R92.333 Mammographic heterogeneous density, bilateral breasts (principal); Z85.3 Personal history of malignant neoplasm of breast; Z92.0 Personal history of contraception; Z78.0 Asymptomatic menopausal state
CPT/HCPCS: 77062; 77066

== ENCOUNTER → 2024-07-13 | Outpatient (CLI) | payer MEDICARE ==
[2024-07-13 12:27] VITALS: BP 131/81; PULSE 55; RESP 16; TEMP 97.9
--- NOTE | 2024-07-13 12:39 | P.PN ---
Subjective Progress Note Date: 07/13/24 07-13-24 Principal diagnosis: stage 1 right breast invasive ductal cancer 2022, [id number] Subjective Progress Note Date: 07-13-24 stage 1 IDC right breast 2022 Mary Ann rincon a 68-year-old white female was seen in consultation for Dr. Kaiser regarding an abnormal right breast mammogram. She underwent a bilateral mammogram on . There was a focal asymmetric density in the upper quadrant of the right breast which appeared to be enlarging over the interval since her last mammogram. The patient subsequently on 4522 underwent a diagnostic mammogram of the right breast as well as a right breast ultrasound. On the ultrasound she was noted to have an 8 x 9 mm heterogeneous hypoechoic oval mass at the 11 o'clock position. This was considered BIRADS 4 a core biopsy was recommended. Core biopsy was performed and and this revealed benign breast tissue and was considered nondiagnostic and possibly discordant. The patient herself did not feel any lumps masses or nodules of concern in either breast. She was not complaining of any nipple discharge or skin changes. She did not complain of any recent trauma or infection in the breast. She had had a right breast biopsy in 2004 this was benign. Abnormal right breast mammogram 07-03-22 /ultrasound discordant core biopsy; led to resection on 09-29-22 which revealed 8 mm invasive ductal cancer; SNB on 10-15-22 4 nodes all (-) [id number]+[id number](-) pathologic staging She feels post surgical and post radiation changes oncotype 12 finished radiation on 12-01-[address] Dutta 05-12-24 reviewed; following with DR. Óscar Dutta on anastrazole decreased to 1 mg every other day; did complain of aching joints has decreased dose and frequency and tolerating better; aso taking vit D/calcium/Fosamax She complains of tightness under her right arm when she lifts it; she has now seen physical therapy and this is better, but she did see DR. Whitney who was concerned about some lymphedema in the breast and she is going to see physical therapy again bilateral mammogram BIRAD 2 She has had a 10 pound intentional weight loss last monica but has regained the weight She did have some cording under her right arm, which has improved with physical therapy. Also the edema in her breast which has improved with massage of her breast. She is not complaining of any lymphedema. She is not complaining of any new lumps masses or nodules of concern in either breast. CAffiene: 1 cup coffee/day nictoine: none chocolate: daily BCP: 10 years in remote past Family history: father: leukemia Hormonal History: menarche: 12 M1, breast fed: yes, age at first : 24 menopause: 55 BCP: age [age] Surgical History: D&C right breast open biopsy bilateral wrist right SNB Medical History: hypothyroid glaucoma anxiety Social History: nicotine: none alcohol: occasional drugs: none - Constitutional Constitutional: Denies chills, Denies fever - EENT Eyes: denies blurred vision, denies pain Ears: deny: decreased hearing, tinnitus Ears, nose, mouth and throat: Denies headache, Denies sore throat - Breasts Breasts: bilateral: as per HPI - Cardiovascular Cardiovascular: Denies chest pain, Denies shortness of breath - Respiratory Respiratory: Denies cough - Gastrointestinal Gastrointestinal: Denies abdominal pain, Denies diarrhea, Denies nausea, Denies vomiting - Genitourinary (Female) Genitourinary: Denies dysuria, Denies hematuria - Menstruation Menstruation: Reports postmenopausal - Musculoskeletal Musculoskeletal: Denies myalgias - Integumentary Integumentary: Denies pruritus, Denies rash - Neurological Neurological: Denies numbness, Denies weakness - Psychiatric Psychiatric: Reports anxiety, Denies depression - Endocrine Endocrine: Denies fatigue, Denies weight change - Hematologic/Lymphatic Comment: none - Allergic/Immunologic Allergic/Immunologic: Reports seasonal allergies Past Medical History Past Medical History: Hyperlipidemia, Osteoarthritis (OA), Pneumonia, Thyroid Disorder Additional Past Medical History / Comment(s): hx colon polyps, History of Any Multi-Drug Resistant Organisms: None Reported Past Surgical History: Orthopedic Surgery Additional Past Surgical History / Comment(s): surgery on kaykay thumbs, kaykay cataracts, D&C, colonoscopy Past Anesthesia/Blood Transfusion Reactions: No Reported Reaction Past Psychological History: Anxiety Smoking Status: Never smoker Past Alcohol Use History: Occasional Past Drug Use History: None Reported - Past Family History Father Family Medical History: Cancer Additional Family Medical History / Comment(s): leukemia Medications and Allergies Home Medications Medication Instructions Recorded Confirmed Type Aspirin [Adult Low Dose Aspirin EC] 81 mg PO DAILY 11/02/17 07/09/22 History Cholecalciferol [Vitamin D3] 1,000 unit PO BID 11/02/17 07/09/22 History Cranberry Tab 1 tab PO DAILY 11/02/17 07/09/22 History Escitalopram [Lexapro] 10 mg PO HS 11/02/17 07/09/22 History I-Cool 1 tab PO DAILY 11/02/17 07/09/22 History Levothyroxine Sodium [Synthroid] 75 mcg PO DAILY 11/02/17 07/09/22 History Multivitamins, Thera [Multivitamin 1 tab PO DAILY 11/02/17 07/09/22 History (formulary)] Pravastatin Sodium [Pravachol] 20 mg PO HS 11/02/17 07/09/22 History Allergies Allergy/AdvReac Type Severity Reaction Status Date / Time No Known Allergies Allergy Verified 07/09/22 10:45 Objective - Vital Signs Vital signs: Vital Signs Temp 97.9 F 07/13/24 12:24 Pulse 55 L 07/13/24 12:24 Resp 16 07/13/24 12:24 BP 131/81 07/13/24 12:24 Pulse Ox 96 07/13/24 12:24 FiO2 Intake & Output 07/12/24 07/13/24 07/13/24 18:59 06:59 18:59 Weight 76.657 kg - Constitutional General appearance: Present: cooperative - EENT Eyes: Present: EOMI ENT: Present: hearing grossly normal - Neck Neck: Present: normal ROM - Respiratory Respiratory: bilateral: CTA - Cardiovascular Rhythm: regular Heart sounds: normal: S1, S2 - Integumentary Integumentary: Present: normal turgor - Musculoskeletal Musculoskeletal: Present: gait normal - Psychiatric Psychiatric: Present: A&O x's 3, appropriate affect, intact judgment & insight - Additional findings Additional findings: Breast Exam: BRA: 40D Inspection: Well-healed scar right breast from prior surgery, bilateral grade 3 ptosis; right breast smaller than left breast Palpation: Right breast: Multiple positional exam surgical and postradiation changes, well- healed scars no discrete dominant masses or nodules of concern; Right axilla: No adenopathy of concern Left breast: Multi positional exam no dominant masses or nodules of concern Left axilla: No adenopathy of concern Assessment and Plan Assessment: Impression: Abnormal right breast mammogram/ultrasound discordant core biopsy; led to resection on 09-29-22 invasive ductal cancer; SNB on 10-15-22 4 nodes all (-) Hypothyroid Completed radiation therapy in November 2022 Patient presently on anastrozole bilateral mammogram on 07-05-24 BIRAD 2 Plan: Continue anastrozole Bilateral mammogram in July 2025 with examination at that time Appointment in 6 months for examination Follow-up with medical oncology Follow up here sooner any questions or concerns CC: Awilda
== END ==
LOC: WWCWWP 11:37
PROVIDERS: ATTEND Surgery
DX: N64.89 Other specified disorders of breast (principal); E03.9 Hypothyroidism, unspecified

== ENCOUNTER → 2024-08-03 | Outpatient (CLI) | payer MEDICARE ==
--- NOTE | 2024-08-03 16:32 | US ---
EXAMINATION TYPE: US kidneys/renal and bladder DATE OF EXAM: 08/03/2024 COMPARISON: NONE CLINICAL INDICATION: Female, 68 years old with history of R10.9 UNSPECIFIED ABDOMINAL PAIN; Left flan k pain, microscopic hematuria TECHNIQUE: Grayscale imaging of the bilateral kidneys and urinary bladder: FINDINGS: EXAM MEASUREMENTS: Right Kidney: 10.3 x 4.5 x 5.0 cm Left Kidney: 9.1 x 5.4 x 5.5 cm Post Void Residual Volume: NA mL Right Kidney: ? Normal renal tissue vs lesion = 3.0 x 2.3 x 2.3 cm Left Kidney: ? Stone vs multiple stones seen lower pole = 1.9 x 1.2 x 0.9 cm Bladder: wnl Bilateral Jets seen: Yes Normal Post Void Residual: NA There is no evidence for hydronephrosis at this point in time. The urinary bladder is anechoic. IMPRESSION: Nonobstructive left-sided nephrolithiasis. Lobulated right renal cortex. [facility], , 08/03/2024 4:29 PM
== END | disposition home or self-care (01) ==
LOC: RADUSWWP 14:26
PROVIDERS: ATTEND Internal Medicine
DX: N20.0 Calculus of kidney (principal); Q63.1 Lobulated, fused and horseshoe kidney
CPT/HCPCS: 76770

== ENCOUNTER → 2024-09-08 | Outpatient (CLI) | payer MEDICARE ==
--- NOTE | 2024-09-08 14:30 | CT ---
EXAMINATION TYPE: CT abdomen pelvis wo con CT DLP: 537.2 mGycm, Automated exposure control for dose reduction was used. DATE OF EXAM: 09/08/2024 1:57 PM COMPARISON: Renal ultrasound 08/03/2024 CLINICAL INDICATION:Female, 68 years old with history of N20.0 calculus of kidney; Abnormal ultrasoun d of left kidney, left flank pain. TECHNIQUE: Standard CT of the abdomen and pelvis without IV or oral contrast. Lack of IV or oral co ntrast limits evaluation of solid and hollow organ viscera. Coronal and sagittal reformats were perfo rmed. FINDINGS: LOWER CHEST: Right lower lobe 2.4 mm solid pulmonary nodule (series 4, image 6). ABDOMEN LIVER: Unremarkable noncontrast appearance. GALLBLADDER AND BILE DUCTS: Unremarkable noncontrast appearance. PANCREAS: Unremarkable noncontrast appearance. SPLEEN: Unremarkable noncontrast appearance. ADRENAL GLANDS: Unremarkable noncontrast appearance.. KIDNEYS AND URETERS: No hydronephrosis. Nonobstructing 2 abutting left inferior pole calculi with lar gest measuring up to 7 mm. No right renal calculi. Lobulated right renal cortex. No hydroureter or h ydronephrosis identified. PELVIS BLADDER: Unremarkable noncontrast appearance. REPRODUCTIVE: Unremarkable noncontrast appearance. ABDOMEN & PELVIS STOMACH AND BOWEL: Small hiatal hernia, duodenum is unremarkable. No focal bowel wall thickening or s urrounding inflammatory changes. Mild colonic stool burden. The appendix is within normal limits. No evidence of bowel obstruction. PERITONEUM: No evidence of pneumoperitoneum or free fluid. VASCULATURE: Mild atherosclerotic calcifications are present throughout the abdominal aorta and its b ranches. No evidence of aortic aneurysm. . Pelvic phleboliths. MUSCULOSKELETAL: No acute osseous abnormalities. Degenerative changes of the pubic symphysis. Lower l umbar spine facet arthropathy. LYMPH NODES: No gross evidence for lymphadenopathy. SOFT TISSUE/ABDOMINAL WALL: Tiny fat filled umbilical hernia. IMPRESSION: 1. No evidence for obstructive uropathy. 2. Couple of adjacent nonobstructing left renal lower pole calculi measuring up to 7 mm. [facility], , 09/08/2024 2:28 PM
== END | disposition home or self-care (01) ==
LOC: RADCTMAIN 13:12
PROVIDERS: ATTEND Urology
DX: N20.0 Calculus of kidney (principal)
CPT/HCPCS: 74176

== ENCOUNTER → 2024-09-12 | Outpatient (CLI) | payer MEDICARE ==
[2024-09-12 15:12] LABS: Basophils # (A) 0.03 X 10*3/uL (0.00-0.10); Basophils % (A) 0.7 %; Eosinophils # (A) 0.06 X 10*3/uL (0.04-0.35); Eosinophils % (A) 1.5 %; HCT 43.5 % (37.2-46.3); HGB 14.3 g/dL (12.0-15.0); Immature Grans, Automated 0 %; Lymphocytes # (A) 1.03 X 10*3/uL (0.90-5.00); Lymphocytes % (A) 25.6 %; MCH 31.4 pg (27.0-32.0); MCHC 32.9 g/dL (32.0-37.0); MCV 95.6 FL (80.0-97.0); Mean Platelet Volume 11.5 FL (9.5-12.2); Monocytes # (A) 0.32 X 10*3/uL (0.20-1.00); NRBC Per 100 WBC 0 X 10*3/uL (0.00-0.01); Neutrophils # (A) 2.58 X 10*3/uL (1.80-7.70); Neutrophils % (A) 64.2 %; Platelet Count 216 X 10*3/uL (140-440); RBC 4.55 X 10*6/uL (4.10-5.20); RDW 12.3 % (11.5-14.5); WBC 4.02 X 10*3/uL (4.50-10.00)
[2024-09-12 15:14] LABS: BUN/Creat Ratio 16.12 Ratio (12.00-20.00); Blood Urea Nitrogen 12.9 mg/dL (9.0-27.0); Calcium 8.7 mg/dL (8.7-10.3); Carbon Dioxide 24.5 mmol/L (21.6-31.8); Chloride 104 mmol/L (96-109); Glucose 78 mg/dL (70-110); Potassium 4.5 mmol/L (3.5-5.5); Sodium 139 mmol/L (135-145)
[2024-09-12 15:24] LABS: Appearance,Urine Clear (Clear); Bilirubin,Urine Negative (Negative); Blood,Urine Negative (Negative); Color,Urine Yellow (Yellow); Ketones,Urine Negative (Negative); Nitrite,Urine Negative (Negative); PH, Urine 6.5; Specific Gravity,Urine 1.012 (1.001-1.030); Urobilinogen,Urine 0.2 E.U./DL
[2024-09-12 15:31] LABS: Bacteria,Urine None Seen (None Seen)
== END | disposition home or self-care (01) ==
LOC: LABWHC1 10:21
PROVIDERS: ATTEND Urology
DX: N20.0 Calculus of kidney (principal)
CPT/HCPCS: 36415; 80048; 81001; 85025; 87086

== ENCOUNTER 2024-09-19 10:19 | Day surgery (SDC) | payer MEDICARE ==
--- NOTE | 2024-09-19 08:57 | P.HPIHPCON ---
History of Present Illness H&P Date: 09/19/24 Chief Complaint: Left renal stone This is a 69-year-old female with history of two 7 mm left-sided lower pole renal stone, she is having symptomatic left flank pain. Option of left ureteroscopy versus ESWL was discussed. She agreed to proceed with left-sided ureteroscopy with holmium laser, aware of the risk which include but not limited to bleeding, infection, injury to the ureter. Discussed potential persistent pain even with stone removal Consent for Procedure: I have explained the operation/procedure to the patient, including the risks, benefits, side effects, alternative therapies (including not receiving the proposed treatment or service), the likelihood of the patient achieving his/her goals, and potential recuperation problems for the procedure/sedation/analgesia, as well as any blood products, if indicated. I also explained to the patient the risks, benefits and side effects of the alternatives, as well as the risks related to not receiving the proposed procedure, care, treatment, or services. Past Medical History Past Medical History: Cancer, Hyperlipidemia, Osteoarthritis (OA), Thyroid Disorder Additional Past Medical History / Comment(s): hx colon polyps, RT BREAST LESION, rt breast cancer,kidney stones History of Any Multi-Drug Resistant Organisms: None Reported Past Surgical History: Breast Surgery, Orthopedic Surgery Additional Past Surgical History / Comment(s): surgery on kaykay thumbs, kaykay cataracts, D&C, colonoscopy, rt breast lumpectomy Past Anesthesia/Blood Transfusion Reactions: No Reported Reaction Smoking Status: Never smoker - Past Family History Father Family Medical History: Cancer Additional Family Medical History / Comment(s): leukemia Medications and Allergies Home Medications Medication Instructions Recorded Confirmed Type Aspirin [Adult Low Dose Aspirin EC] 81 mg PO DAILY 11/02/17 09/15/24 History Cholecalciferol [Vitamin D3] 1,000 unit PO BID 11/02/17 09/15/24 History Cranberry Tab 1 tab PO DAILY 11/02/17 09/15/24 History Escitalopram [Lexapro] 10 mg PO HS 11/02/17 09/15/24 History Levothyroxine Sodium [Synthroid] 75 mcg PO DAILY 11/02/17 09/15/24 History Multivitamins, Thera [Multivitamin 1 tab PO DAILY 11/02/17 09/15/24 History (formulary)] Pravastatin Sodium [Pravachol] 20 mg PO HS 11/02/17 09/15/24 History Fish Oil/Dha/Epa [Fish Oil 1,200 1 each PO DAILY 09/24/22 09/15/24 History mg Fish Oil] Glucosa Fuentes 2Kcl/Chondroitin Fuentes 1 each PO BID 09/24/22 09/15/24 History [Glucosamine-Chondroitin Cap] Latanoprost Ophth [Xalatan 0.005%] 1 drop BOTH EYES HS 09/24/22 09/15/24 History ALPRAZolam [Xanax] 0.25 mg PO DIRECTED PRN 10/12/22 09/15/24 History Alendronate Sodium [Fosamax] 10 mg PO WEEKLY 03/11/23 09/15/24 History Anastrozole 1 mg PO Q48H 03/11/23 09/15/24 History Calcium (Unk) 1 tab PO DAILY 09/15/24 09/15/24 History Vit C (Unk) 1 tab PO DAILY 09/15/24 09/15/24 History Zinc (Unk) 1 tab PO DAILY 09/15/24 09/15/24 History traMADol HCL 50 mg PO Q6H PRN 09/15/24 09/15/24 History Allergies Allergy/AdvReac Type Severity Reaction Status Date / Time No Known Allergies Allergy Verified 09/15/24 09:36 Surgical - Exam - General no distress, moderate pain - Eyes normal ocular movement, no pale - ENT normal nares, normal mucosa - Respiratory normal expansion, normal respiratory effort - Abdomen Abdomen: soft, non tender Assessment and Plan Assessment: OR for left-sided ureteroscopy, lithotripsy, stone basketing and stent insertion
[~2024-09-19 10:19] MED LIST changes: -HEPARIN SODIUM,PORCINE/PF 5,000 UNIT/0.5 ML SYRINGE SQ PRN; +LIDOCAINE 1% (10MG/ML) FOR IV START INTRADERMA PRN; -Pre Op ABX Message 1 EACH MISC MISCELLANE ONE; +droPERidol 2.5 MG/ML VIAL IVP ONE
--- NOTE | 2024-09-19 10:43 | XR ---
EXAMINATION TYPE: XR KUB DATE OF EXAM: 09/19/2024 10:30 AM COMPARISON: None. CLINICAL INDICATION: Female, 69 years old with history of N20.0 renal stone, pain TECHNIQUE: AP view(s) obtained. FINDINGS: Femoral heads articulate with the acetabulum. Symphysis pubis and sacroiliac joints are normal. Michelle l bowel gas is present. There is a 1.0 cm calcification over the inferior pole left kidney. IMPRESSION: 1. Left renal stone [facility], , 09/19/2024 10:40 AM
[2024-09-19] MEDS: IV FLUID CONTINUATION 1,000 ML IV ONE (10:53)
[2024-09-19] MEDS: LACTATED RINGERS 1,000 ML IV SCH (11:07)
[2024-09-19] MEDS: DEXAMETHASONE SOD PHOSPHATE 4 MG/ML 1 ML VIAL IV ONE (11:08)
[2024-09-19] MEDS: ONDANSETRON 4 MG/2 ML VIAL IVP ONE (11:08)
[2024-09-19] MEDS ORDERED: MIDAZOLAM 2 MG/2 ML VIAL ONE (12:13)
[2024-09-19] MEDS ORDERED: SUCCINYLCHOLINE CHLORIDE 200 MG/10 ML VIAL IV ONE (12:13)
[2024-09-19] MEDS ORDERED: LIDOCAINE 1% INJ 10MG/ML (20 ML MDV) ONE (12:13)
[2024-09-19] MEDS ORDERED: fentaNYL (PF) 50 MCG/ML 2 ML AMP ONE (12:13)
[2024-09-19] MEDS ORDERED: ePHEDrine 50 MG/ML 1 ML VIAL ONE (12:13)
[2024-09-19] MEDS: ceFAZolin 2 GM in DEXTROSE 5% IN WATER 50 ML IVPB PRN (12:13)
[2024-09-19] MEDS ORDERED: GLYCOPYRROLATE 0.2 MG/ML 2 ML VIAL ONE (12:13)
[2024-09-19] MEDS ORDERED: PROPOFOL 10 MG/ML 20 ML VIAL IV ONE (12:13)
--- NOTE | 2024-09-19 13:08 | P.OP ---
Date of Procedure: 09/19/24 Preoperative Diagnosis: Left renal stone Postoperative Diagnosis: Same Procedure(s) Performed: Cystoscopy, left ureteroscopy, holmium laser lithotripsy, stone basketing and stent insertion Implants: 6 Malagasy by 24 cm stent to the left ureter Anesthesia: SISI Surgeon: David Brady Estimated Blood Loss (ml): 5 Pathology: other (Left renal stone) Condition: stable Disposition: PACU Indications for Procedure: This is a 69-year-old female with history of two 7 mm left-sided lower pole renal stone, she is having symptomatic left flank pain. Option of left ureteroscopy versus ESWL was discussed. She agreed to proceed with left-sided ureteroscopy with holmium laser, aware of the risk which include but not limited to bleeding, infection, injury to the ureter. Discussed potential persistent pain even with stone removal Operative Findings: Large stone in the left lower pole Description of Procedure: Patient brought the operating, general anesthesia was induced. She was prepped and draped in sterile fashion placed in dorsolithotomy position. Cystoscopy for the 21 Malagasy sheath was inserted per urethra, cystoscopy was performed showed no abnormality within the bladder. Attention was then carried to the left ureteral orifice which was intubated with a sensor wire, the wire was advanced under fluoroscopy into the left kidney, next an 1113 Malagasy access sheath was passed over the wire into the left proximal ureter under fluoroscopy. Next a flexible ureteroscope was inserted through the access sheath, renoscopy was performed showed a large stone in the lower pole. Using the holmium laser the stone was dusted, any sizable fragments were removed using the stone basket. Repeat renoscopy showed no sizable fragments or injury to the kidney, on fluoroscopy there was no radiopaque density seen. Pullback ureteroscopy was performed showed no injury to the ureter or any ureteral stone, as ureteroscope was withdrawn a sensor wire was advanced through. Next a ureteral stent was passed over the wire, the proximal curl was visualized on fluoroscopy and the distal curl was visualized using cystoscope. The bladder was emptied at the end of the case. Patient tolerated procedure well was taken to recovery in stable condition
--- NOTE | 2024-09-19 13:13 | FL ---
Fluoroscopy INDICATION: Pain FINDINGS: Fluoroscopy time: 11 seconds. Total dose area product (DAP) in uGy*m?, mGy*cm? (or similar): [id number] Images obtained: 3. Images document ureteral stent placement IMPRESSION: 1. Documentation of fluoroscopy. [facility], , 09/19/2024 1:10 PM
[2024-09-19 13:17] VITALS: TEMP 97
[2024-09-19] MEDS: HYDROmorphone 0.5 MG/0.5 ML SYRINGE IVP PRN (13:37)
[2024-09-19] MEDS: traMADol 50 MG TAB PO STA (14:36)
[2024-09-19 15:04] VITALS: RESP 14
[2024-09-19 15:10] VITALS: BP 152/85; PULSE 91
== END 2024-09-19 15:25 | disposition home or self-care (01) ==
LOC: OR 10:19
PROVIDERS: ATTEND Urology
DX: N20.0 Calculus of kidney (principal); E78.5 Hyperlipidemia, unspecified; E07.9 Disorder of thyroid, unspecified; M19.90 Unspecified osteoarthritis, unspecified site; Z79.890 Hormone replacement therapy; Z85.3 Personal history of malignant neoplasm of breast; Z86.0100 Personal history of colon polyps, unspecified; Z79.899 Other long term (current) drug therapy
CPT/HCPCS: 52356; 82365; 74018; C1769; J2250; J0330; J1100; J0690; J2405; J2003; J3010; J2704; J1171; J1596